=== PATIENT | female | born 2000 | race Caucasian/White ===

== ENCOUNTER 2020-02-12 11:37 | Emergency (ER) | payer OTHER ==
[2020-02-12 11:48] VITALS: BP 134/48; PULSE 139; RESP 18
[2020-02-12] MEDS ORDERED: LORazepam 2 MG/ML INJ IM STA (12:00)
--- NOTE | 2020-02-12 12:05 | ED ---
General Adult HPI - General Chief complaint: Psychiatric Symptoms Stated complaint: Mental Health Time Seen by Provider: 02/12/20 11:49 Source: patient, RN notes reviewed, old records reviewed Mode of arrival: ambulatory Limitations: no limitations - History of Present Illness Initial comments: 19-year-old female history of polysubstance abuse presenting with anxiety, suicidal ideation. Patient states that 3 days ago she stopped using heroin, methamphetamine, and benzodiazepines. Patient's is quite agitated upon arrival. She is stating she is having suicidal thoughts with plans to commit suicide but is unable to specify an exact plan. She denies any drugs of abuse within the past 72 hours. - Related Data Home Medications Medication Instructions Recorded Confirmed No Known Home Medications 02/12/20 02/12/20 Allergies Allergy/AdvReac Type Severity Reaction Status Date / Time No Known Allergies Allergy Verified 02/12/20 15:19 Review of Systems ROS Statement: Those systems with pertinent positive or pertinent negative responses have been documented in the HPI. ROS Other: All systems not noted in ROS Statement are negative. Past Medical History Past Medical History: No Reported History History of Any Multi-Drug Resistant Organisms: None Reported Past Surgical History: No Surgical Hx Reported Past Psychological History: Bipolar Smoking Status: Current every day smoker Past Alcohol Use History: None Reported Past Drug Use History: Heroin, Marijuana, Methamphetamine, Prescription Drug Abuse General Exam Limitations: no limitations General appearance: anxious Head exam: Present: atraumatic, normocephalic Eye exam: Present: normal appearance, PERRL ENT exam: Present: mucous membranes dry Neck exam: Present: normal inspection. Absent: tenderness, meningismus Respiratory exam: Present: normal lung sounds bilaterally. Absent: respiratory distress, wheezes Cardiovascular Exam: Present: regular rate, normal rhythm GI/Abdominal exam: Present: soft. Absent: distended, tenderness Extremities exam: Present: normal inspection, normal capillary refill. Absent: pedal edema Neurological exam: Present: alert, oriented X3 Psychiatric exam: Present: agitated, anxious, suicidal ideation Skin exam: Present: warm, dry, intact. Absent: cyanosis, diaphoretic Course Vital Signs 02/12/20 11:44 Temperature 97.9 F Pulse Rate 139 H Respiratory 18 Rate Blood Pressure 134/48 O2 Sat by Pulse 97 Oximetry Medical Decision Making - Medical Decision Making Patient medically cleared, evaluated by EPS and [facility]. She is no longer suicidal, she states this was just related to drug detox. She has signed a safety plan and will be discharged to drug rehabilitation. Again patient voicing no suicidal plan and willing to participate in rehabilitation. - Lab Data Lab Results 02/12/20 Range/Units Unknown Urine Opiates Screen Not Detected (NotDetected) Ur Oxycodone Screen Not Detected (NotDetected) Urine Methadone Screen Not Detected (NotDetected) Ur Propoxyphene Screen Not Detected (NotDetected) Ur Barbiturates Screen Not Detected (NotDetected) U Tricyclic Antidepress Not Detected (NotDetected) Ur Phencyclidine Scrn Not Detected (NotDetected) Ur Amphetamines Screen Detected H (NotDetected) U Methamphetamines Scrn Detected H (NotDetected) U Benzodiazepines Scrn Not Detected (NotDetected) Urine Cocaine Screen Not Detected (NotDetected) U Marijuana (THC) Screen Detected H (NotDetected) Disposition Clinical Impression: Depression, Polysubstance abuse Disposition: HOME SELF-CARE Condition: Fair Instructions (If sedation given, give patient instructions): Methamphetamine Abuse (ED), Polysubstance Abuse (ED), Depression (ED) Additional Instructions: Please follow up with community mental health, please return with worsening or changing symptoms. Is patient prescribed a controlled substance at d/c from ED?: No Referrals: None,Stated [Primary Care Provider] - 1-2 days Areli Burroughs MD [REFERRING] - 1-2 days Time of Disposition: 15:34
[2020-02-12 14:07] LABS: Cocaine Screen,Urine Not Detected (NotDetected); Phencyclidine Screen,Urine Not Detected (NotDetected); Urn Cannabinoid Scrn Detected (NotDetected)
[2020-02-12 14:08] LABS: Amphetamine Screen,Urine Detected (NotDetected); Barbiturate Screen,Urine Not Detected (NotDetected); Benzodiazepines Screen,Urine Not Detected (NotDetected); Methadone Screen, Urine Not Detected (NotDetected); Opiate Screen,Urine Not Detected (NotDetected); Oxycodone Screen, Urine Not Detected (NotDetected); Tricyclic Antidepressant,Urine Not Detected (NotDetected)
[2020-02-12] MEDS ORDERED: diphenhydrAMINE 25 MG CAP PO STA (15:08)
[2020-02-12 17:11] VITALS: TEMP 97.9
== END 2020-02-12 17:11 | disposition home or self-care (01) ==
LOC: EC 11:37
DX: F19.11 Other psychoactive substance abuse, in remission (principal); F32.9 Major depressive disorder, single episode, unspecified; F17.200 Nicotine dependence, unspecified, uncomplicated
CPT/HCPCS: 82075; 80306; 99285; J2060

== ENCOUNTER 2020-09-09 14:00 | Inpatient (IN) | payer OTHER ==
[2020-09-09] MEDS ORDERED: SODIUM CHLORIDE 0.9% 1,000 ML IV STA (14:25)
[2020-09-09 14:43] LABS: Anisocytosis Slight; Basophils % (A) 0 %; Eosinophils # (A) 0.1 k/uL (0-0.7); Eosinophils % (A) 1 %; HGB 13.1 gm/dL (11.4-16.0); Lymphocytes # (A) 2.5 k/uL (1.0-4.8); Lymphocytes % (A) 31 %; MCH 27.2 pg (25.0-35.0); MCHC 31.9 g/dL (31.0-37.0); MCV 85.3 fL (80.0-100.0); Mean Platelet Volume 7.4; Monocytes # (A) 0.4 k/uL (0-1.0); Monocytes % (A) 5 %; Neutrophils % (A) 61 %; Platelet Count 349 k/uL (150-450); WBC 8.3 k/uL (3.8-10.6)
[2020-09-09 14:55] LABS: ALT 51 U/L (4-34); AST 45 U/L (14-36); African American GFR (CKD) >90 (>60 ml/min/1.73 sqM); Albumin 3.9 g/dL (3.5-5.0); Alkaline Phosphatase 64 U/L (38-126); Anion Gap 10 mmol/L; Blood Urea Nitrogen 7 mg/dL (7-17); Calcium 9.6 mg/dL (8.4-10.2); Carbon Dioxide 23 mmol/L (22-30); Chloride 111 mmol/L (98-107); Glucose 95 mg/dL (74-99); Non-African American GFR(CKD) >90 (>60 ml/min/1.73 sqM); Potassium 4.4 mmol/L (3.5-5.1); Sodium 144 mmol/L (137-145); Total Bilirubin 0.3 mg/dL (0.2-1.3); Total Protein 7.2 g/dL (6.3-8.2)
[2020-09-09 15:01] LABS: Appearance,Urine Clear (Clear); Bilirubin,Urine Negative (Negative); Blood,Urine Negative (Negative); Color,Urine Yellow; Glucose,Urine (UA) Negative (Negative); Ketones,Urine Negative (Negative); Leukocyte Esterase,Urine Negative (Negative); Nitrite,Urine Negative (Negative); PH, Urine 8.5 (5.0-8.0); Protein,Urine Trace (Negative); Specific Gravity,Urine 1.017 (1.001-1.035); Urobilinogen,Urine <2.0 mg/dL (<2.0)
[2020-09-09 15:10] LABS: Amphetamine Screen,Urine Not Detected (NotDetected); Barbiturate Screen,Urine Not Detected (NotDetected); Benzodiazepines Screen,Urine Not Detected (NotDetected); Cocaine Screen,Urine Not Detected (NotDetected); Methadone Screen, Urine Not Detected (NotDetected); Opiate Screen,Urine Not Detected (NotDetected); Oxycodone Screen, Urine Not Detected (NotDetected); Phencyclidine Screen,Urine Not Detected (NotDetected); Tricyclic Antidepressant,Urine Not Detected (NotDetected); Urn Cannabinoid Scrn Detected (NotDetected)
--- NOTE | 2020-09-09 15:39 | ED ---
Seizure HPI - General Source: patient Mode of arrival: EMS Limitations: no limitations <Zina Garner - Last Filed: 09/09/20 20:33> <Tanya Donovan - Last Filed: 09/20/20 17:27> - General Chief Complaint: Seizure Stated Complaint: Seizure Time Seen by Provider: 09/09/20 14:15 - History of Present Illness Initial Comments: 20 year-old female patient presents to the emergency department for evaluation after having a seizure. Patient is currently at [facility] for heroin, methamphetamines, and benzos. Patient admits that she does generally drink alcohol on a daily basis. Has been at [facility] since 09/06/20. Staff at [facility] report generalized tonic clonic seizure lasting abotu 3 minutes. Patient denies loss of bowel or bladder control. Denies any tongue biting. States she has had one seizure in the past, over a year ago. Does not take any medications. Patient states that she has a mild headache. States she did strike her head when she fell. Has some tenderness to the right side of her head. Denies any neck or back pain. Has numbness, tingling, weakness to extremities. She does report fe eling anxious. She did receive 10 mg of Versed IM in the ambulance. Patient denies any recent rash, fever, chills, cough, shortness of breath, chest pain, abdominal pain, nausea, vomiting, diarrhea, constipation, hematuria, dysuria, urinary urgency, urinary frequency, or any other complaints. (Zina Garner) - Related Data Home Medications Medication Instructions Recorded Confirmed Acetaminophen Tab [Tylenol] 650 mg PO Q4H PRN 09/09/20 09/09/20 Calcium/Magnesium 1 tab PO DAILY 09/09/20 09/09/20 Chlorpheniramine Maleate 4 mg PO Q4H PRN 09/09/20 09/09/20 [Chlor-Trimeton] Ibuprofen [Motrin] 600 mg PO Q6H PRN 09/09/20 09/09/20 OXcarbazepine [Trileptal] 300 mg PO BID@0615,1630 09/09/20 09/09/20 QUEtiapine FUMARATE [SEROquel] 200 mg PO HS@2100 09/09/20 09/09/20 cloNIDine HCL [Catapres] 0.1 mg PO Q4H PRN 09/09/20 09/09/20 ondansetron HCL [Zofran] 8 mg PO Q6H PRN 09/09/20 09/09/20 Allergies Allergy/AdvReac Type Severity Reaction Status Date / Time No Known Allergies Allergy Verified 09/09/20 16:22 Review of Systems ROS Other: All systems not noted in ROS Statement are negative. <Zina Garner - Last Filed: 09/09/20 20:33> ROS Other: All systems not noted in ROS Statement are negative. <Tanya Donovan - Last Filed: 09/20/20 17:27> ROS Statement: Those systems with pertinent positive or pertinent negative responses have been documented in the HPI. 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 Vital signs upon presentation are temperature 98.8F, pulse 49, respirations 18, blood pressure 118/81, pulse ox 99% on room air.) Eye exam: Present: normal appearance, PERRL, EOMI. Absent: scleral icterus, conjunctival injection, nystagmus, periorbital swelling ENT exam: Present: normal exam, normal oropharynx, mucous membranes moist Neck exam: Present: normal inspection, full ROM, other (Nontender, no step-off, no deformity to firm midline palpation of the posterior cervical spine. Full range of motion without pain or limitation.). Absent: tenderness, meningismus, lymphadenopathy Respiratory exam: Present: normal lung sounds bilaterally. Absent: respiratory distress, wheezes, rales, rhonchi, stridor Cardiovascular Exam: Present: normal rhythm, bradycardia, normal heart sounds. Absent: systolic murmur, diastolic murmur, rubs, gallop, clicks GI/Abdominal exam: Present: soft, normal bowel sounds. Absent: distended, tenderness, guarding, rebound, rigid Neurological exam: Present: alert, oriented X3, CN II-XII intact Expanded Speech: Present: fluid speech Cranial nerves: EOM's Intact: Normal, Tongue Deviation: Normal Motor strength exam: RUE: 5, LUE: 5, RLE: 5, LLE: 5 Psychiatric exam: Present: normal affect, normal mood Skin exam: Present: warm, dry, intact, normal color. Absent: rash <Zina Garner - Last Filed: 09/09/20 20:33> Course Vital Signs 09/09/20 09/09/20 09/09/20 14:15 15:30 16:39 Temperature 98.8 F Pulse Rate 49 L 62 60 Pulse Rate [ Pulse Oximetery ] Respiratory 18 18 18 Rate Blood Pressure 118/81 119/67 116/69 Blood Pressure [Right Arm] O2 Sat by Pulse 99 98 99 Oximetry 09/09/20 09/09/20 09/09/20 18:09 18:25 20:57 Temperature 97.9 F Pulse Rate 45 L 55 L Pulse Rate [ 43 L Pulse Oximetery ] Respiratory 16 18 16 Rate Blood Pressure 122/83 122/73 Blood Pressure 141/85 [Right Arm] O2 Sat by Pulse 100 99 Oximetry Medical Decision Making - Lab Data Result diagrams: 09/09/20 14:29 09/09/20 14:29 - EKG Data -: EKG Interpreted by Fl - Radiology Data Radiology results: report reviewed, image reviewed <Zina Garner - Last Filed: 09/09/20 20:33> - Lab Data Result diagrams: 09/09/20 14:29 09/09/20 14:29 <Tanya Donovan - Last Filed: 09/20/20 17:27> - Medical Decision Making 20 year-female patient presented from [facility] rehab facility after having a seizure. Patient is being treated for heroin, methamphetamine, benzo, and marijuana addiction. Patient admitted to [facility] that she drinks alcohol on a daily basis. She has been at the facility for 3 days. Reports history of one seizure in the past. Physical examination was unremarkable. Labs unremarkable. She did have marked sinus bradycardia on EKG. She did have three additional seizures while in the ED. She will be admitted for alcohol vs benzo withdrawal seizures. CIWA protocol with ativan has been ordered. Telemetry monitoring. Patient is agreeable with this plan. Case discussed with my attending Dr. Donovan. (Zina Garner) I was available for consultation in the emergency department. The history and physical exam were done by the midlevel provider. I was consulted for this patients care. I reviewed the case with the midlevel provider and based on thei r presentation of the patient, I agree with the assessment, medical decision making and plan of care as documented. Chart was dictated using [employer] dictation software. Attempts were made to correct any dictation errors however some typographical errors may persist. Patient was seen during a national state of emergency due to the Covid-19 pandemic. (Tanya Donovan) - Lab Data Lab Results 09/09/20 09/09/20 09/09/20 Range/Units 14:29 14:29 14:29 WBC 8.3 (3.8-10.6) k/uL RBC 4.80 (3.80-5.40) m/uL Hgb 13.1 (11.4-16.0) gm/dL Hct 41.0 (34.0-46.0) % MCV 85.3 (80.0-100.0) fL MCH 27.2 (25.0-35.0) pg MCHC 31.9 (31.0-37.0) g/dL RDW 16.0 H (11.5-15.5) % Plt Count 349 (150-450) k/uL MPV 7.4 Neutrophils % 61 % Lymphocytes % 31 % Monocytes % 5 % Eosinophils % 1 % Basophils % 0 % Neutrophils # 5.0 (1.3-7.7) k/uL Lymphocytes # 2.5 (1.0-4.8) k/uL Monocytes # 0.4 (0-1.0) k/uL Eosinophils # 0.1 (0-0.7) k/uL Basophils # 0.0 (0-0.2) k/uL Anisocytosis Slight Sodium 144 (137-145) mmol/L Potassium 4.4 (3.5-5.1) mmol/L Chloride 111 H (98-107) mmol/L Carbon Dioxide 23 (22-30) mmol/L Anion Gap 10 mmol/L BUN 7 (7-17) mg/dL Creatinine 0.70 (0.52-1.04) mg/dL Est GFR (CKD-EPI)AfAm >90 (>60 ml/min/1.73 sqM) Est GFR (CKD-EPI)NonAf >90 (>60 ml/min/1.73 sqM) Glucose 95 (74-99) mg/dL Calcium 9.6 (8.4-10.2) mg/dL Total Bilirubin 0.3 (0.2-1.3) mg/dL AST 45 H (14-36) U/L ALT 51 H (4-34) U/L Alkaline Phosphatase 64 (38-126) U/L Total Protein 7.2 (6.3-8.2) g/dL Albumin 3.9 (3.5-5.0) g/dL Urine Color Yellow Urine Appearance Clear (Clear) Urine pH 8.5 H (5.0-8.0) Ur Specific [place] 1.017 (1.001-1.035) Urine Protein Trace H (Negative) Urine Glucose (UA) Negative (Negative) Urine Ketones Negative (Negative) Urine Blood Negative (Negative) Urine Nitrite Negative (Negative) Urine Bilirubin Negative (Negative) Urine Urobilinogen <2.0 (<2.0) mg/dL Ur Leukocyte Esterase Negative (Negative) Urine HCG, Qual (Not Detectd) Urine Opiates Screen Not Detected (NotDetected) Ur Oxycodone Screen Not Detected (NotDetected) Urine Methadone Screen Not Detected (NotDetected) Ur Propoxyphene Screen Not Detected (NotDetected) Ur Barbiturates Screen Not Detected (NotDetected) U Tricyclic Antidepress Not Detected (NotDetected) Ur Phencyclidine Scrn Not Detected (NotDetected) Ur Amphetamines Screen Not Detected (NotDetected) U Methamphetamines Scrn Not Detected (NotDetected) U Benzodiazepines Scrn Not Detected (NotDetected) Urine Cocaine Screen Not Detected (NotDetected) U Marijuana (THC) Screen Detected H (NotDetected) 09/09/20 Range/Units 14:29 WBC (3.8-10.6) k/uL RBC (3.80-5.40) m/uL Hgb (11.4-16.0) gm/dL Hct (34.0-46.0) % MCV (80.0-100.0) fL MCH (25.0-35.0) pg MCHC (31.0-37.0) g/dL RDW (11.5-15.5) % Plt Count (150-450) k/uL MPV Neutrophils % % Lymphocytes % % Monocytes % % Eosinophils % % Basophils % % Neutrophils # (1.3-7.7) k/uL Lymphocytes # (1.0-4.8) k/uL Monocytes # (0-1.0) k/uL Eosinophils # (0-0.7) k/uL Basophils # (0-0.2) k/uL Anisocytosis Sodium (137-145) mmol/L Potassium (3.5-5.1) mmol/L Chloride (98-107) mmol/L Carbon Dioxide (22-30) mmol/L Anion Gap mmol/L BUN (7-17) mg/dL Creatinine (0.52-1.04) mg/dL Est GFR (CKD-EPI)AfAm (>60 ml/min/1.73 sqM) Est GFR (CKD-EPI)NonAf (>60 ml/min/1.73 sqM) Glucose (74-99) mg/dL Calcium (8.4-10.2) mg/dL Total Bilirubin (0.2-1.3) mg/dL AST (14-36) U/L ALT (4-34) U/L Alkaline Phosphatase (38-126) U/L Total Protein (6.3-8.2) g/dL Albumin (3.5-5.0) g/dL Urine Color Urine Appearance (Clear) Urine pH (5.0-8.0) Ur Specific [place] (1.001-1.035) Urine Protein (Negative) Urine Glucose (UA) (Negative) Urine Ketones (Negative) Urine Blood (Negative) Urine Nitrite (Negative) Urine Bilirubin (Negative) Urine Urobilinogen (<2.0) mg/dL Ur Leukocyte Esterase (Negative) Urine HCG, Qual Not Detected (Not Detectd) Urine Opiates Screen (NotDetected) Ur Oxycodone Screen (NotDetected) Urine Methadone Screen (NotDetected) Ur Propoxyphene Screen (NotDetected) Ur Barbiturates Screen (NotDetected) U Tricyclic Antidepress (NotDetected) Ur Phencyclidine Scrn (NotDetected) Ur Amphetamines Screen (NotDetected) U Methamphetamines Scrn (NotDetected) U Benzodiazepines Scrn (NotDetected) Urine Cocaine Screen (NotDetected) U Marijuana (THC) Screen (NotDetected) - EKG Data EKG Comments: EKG obtained at 1432 shows markedly sinus bradycardia with a ventricular rate of 46, TN interval 118, QRS duration 82, QTc 504, QTC 441. No evidence of ST elevation or depression. (Zina Garner) - Radiology Data CT brain without contrast obtained. Report reviewed in its entirety. Impression by Dr. Harmon and shows no acute intracranial process. (Zina Garner) Disposition Decision to Admit Reason: Admit from EC Decision Date: 09/09/20 Decision Time: 17:32 <Zina Garner - Last Filed: 09/09/20 20:33> <Tanya Donovan - Last Filed: 09/20/20 17:27> Clinical Impression: Seizures, Alcohol withdrawal, Polysubstance abuse Disposition: ADMITTED IP TO THIS [facility] Condition: Serious
--- NOTE | 2020-09-09 16:07 | CT ---
EXAMINATION TYPE: CT brain wo con DATE OF EXAM: 09/09/2020 COMPARISON: None INDICATION: Seizure today with possible injury. History of seizure. DLP: 1064.4 mGycm, Automated exposure control for dose reduction was used. CONTRAST: None CT of the brain is performed utilizing 3 mm thick sections through the posterior fossa and 3 mm thick sections through the remaining calvarium. Study is performed within 24 hours of arrival to the hosp ital. No abnormal hyperdensity is present to suggest an acute intracranial hemorrhage. No mass lesion is evident. No acute infarcts are evident. Ventricles and sulci are appropriate for the patient age. Paranasal sinuses and mastoid air cells within the [id number] are clear. No acute fractures evident. IMPRESSIONS: 1. No acute intracranial process.
[2020-09-09] MEDS ORDERED: LORazepam 2 MG/ML INJ IV STA (17:23)
[2020-09-09] MEDS ORDERED: LORazepam 2 MG/ML INJ IV PRN ×2 (17:30)
[2020-09-09] MEDS ORDERED: MIDAZOLAM 1 MG/ML 5 ML VIAL IV STA (17:50)
[2020-09-09] MEDS ORDERED: NALOXONE 0.4 MG/ML 1 ML VIAL IV PRN (17:54)
[2020-09-09] MEDS: THIAMINE 100 MG TAB PO SCH (18:09)
[2020-09-09] MEDS: LORazepam 2 MG/ML INJ IV PRN ×2 (18:14→21:40)
[2020-09-09] MEDS ORDERED: QUEtiapine 200 MG TAB PO STA (20:43)
[2020-09-09 22:04] VITALS: TEMP 97.9
--- NOTE | 2020-09-09 23:46 | P.HPIM ---
History of Present Illness H&P Date: 09/09/20 Patient is a 20-year-old female with a PMH of polysubstance abuse including heroin, methamphetamine, EtOH, and prescription benzodiazepines along with a history of bipolar disorder and depression who was brought into the emergency room after a witnessed seizure. The patient reports that she had checked herself into [facility] on 09/06. The patient reportedly had a seizure at [facility] witnessed by the staff lasting about 3 minutes, tonic-clonic in nature with no reported urine or bowel incontinence. Patient denies tongue biting. She also reports falling to the ground and hitting her head during this episode. She endorsed a mild diffuse headache and feeling fatigued. She denied additional complaints. Denied this, numbness, tingling, visual disturbances. Also denied chest pain, shortness of breath, cough, nausea, vomiting, abdominal pain, diarrhea. The patient reports that she has previously had 2 additional seizures 2-3 months ago when she was incarcerated. Denies ever being on antiepileptics. Reports that her last drink was on 09/06 prior to going into [facility]. Notes that she drinks one to 2 pints of vodka daily along with a sixpack of beer and has been doing so for the past 1 year. Denied ever being hospitalized with delirium tremens. Also reports that she had last used multiple substances including benzodiazepines, IV methamphetamine, and IV heroin on 09/06. Brain CT in the emergency room was unremarkable with EKG showing sinus bradycardia at [address]/T-wave changes noted as reviewed by me. Laboratory evaluation was remarkable for AST 45, ALT 51, and urine toxicology positive for marijuana. Review of Systems Pertinent positives and negatives as discussed in HPI, a complete review of systems was performed and all other systems are negative. 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 History of Any Multi-Drug Resistant Organisms: None Reported Past Surgical History: No Surgical Hx Reported Past Psychological History: ADD/ADHD, Bipolar, Depression, PTSD Smoking Status: Current every day smoker Past Alcohol Use History: None Reported Past Drug Use History: Heroin, Marijuana, Methamphetamine, Opiates, Prescription Drug Abuse Medications and Allergies Home Medications Medication Instructions Recorded Confirmed Type Acetaminophen Tab [Tylenol] 650 mg PO Q4H PRN 09/09/20 09/09/20 History Calcium/Magnesium 1 tab PO DAILY 09/09/20 09/09/20 History Chlorpheniramine Maleate 4 mg PO Q4H PRN 09/09/20 09/09/20 History [Chlor-Trimeton] Ibuprofen [Motrin] 600 mg PO Q6H PRN 09/09/20 09/09/20 History OXcarbazepine [Trileptal] 300 mg PO BID@0615,1630 09/09/20 09/09/20 History QUEtiapine FUMARATE [SEROquel] 200 mg PO HS@2100 09/09/20 09/09/20 History cloNIDine HCL [Catapres] 0.1 mg PO Q4H PRN 09/09/20 09/09/20 History ondansetron HCL [Zofran] 8 mg PO Q6H PRN 09/09/20 09/09/20 History Allergies Allergy/AdvReac Type Severity Reaction Status Date / Time No Known Allergies Allergy Verified 09/09/20 16:22 Physical Exam Vitals: Vital Signs Temp Pulse Resp BP Pulse Ox 09/09/20 20:57 55 L 16 122/73 09/09/20 18:09 45 L 16 122/83 100 09/09/20 16:39 60 18 116/69 99 09/09/20 15:30 62 18 119/67 98 09/09/20 14:15 98.8 F 49 L 18 118/81 99 Intake and Output 09/09/20 09/09/20 09/09/20 06:59 14:59 22:59 Other: Weight 61.235 kg General: non toxic, no distress, appears older than stated age, normal weight Derm: no unusual rashes/lesions no unusual ecchymoses, warm, dry, track welch noted Head: atraumatic, normocephalic, symmetric Eyes: EOMI, no lid lag, anicteric sclera, pupils equal round reactive to light ENT: Nose and ears atraumatic, no thrush, no pharyngeal erythema, no tongue bites Neck: No thyromegaly, no cervical lymphadenopathy, trachea midline, supple Mouth: no lip lesion, mucus membranes moist Cardiovascular: S1S2 reg, no murmur, positive posterior tibial pulse bilateral, no edema, capillary refill less than 2 seconds Lungs: CTA bilateral, no rhonchi, no rales , no accessory muscle use Abdominal: soft, nontender to palpation, no guarding, no appreciable organomegaly, normal bowel sounds Ext: no gross muscle atrophy, muscle strength 5 out of 5 in all 4 extremities grossly, no contractures, Neuro: CN II-XI grossly intact, light touch intact all 4 extremities, finger to nose within normal limits, no outstretched hand tremor noted, no tongue fasciculations noted Psych: Alert, oriented, appropriate affect Results CBC & Chem 7: 09/09/20 14:29 09/09/20 14:29 Labs: Abnormal Lab Results - Last 24 Hours (Table) 09/09/20 09/09/20 09/09/20 Range/Units 14:29 14: 14: RDW 16.0 H (11.5-15.5) % Chloride 111 H (98-107) mmol/L AST 45 H (14-36) U/L ALT 51 H (4-34) U/L Urine pH 8.5 H (5.0-8.0) Urine Protein Trace H (Negative) U Marijuana (THC) Screen Detected H (NotDetected) Assessment and Plan Plan: Grand mal seizure, unclear etiology, primary versus EtOH or benzodiazepine withdrawal -Patient does not appear to be in EtOH withdrawal at this time -Seizure, fall precautions -CIWA protocol -Thiamine -Strongly advised on importance of cessation from polysubstance abuse -Continue with IV fluids Transaminitis -Likely secondary to EtOH abuse DVT prophylaxis -Heparin subq The patient is admitted with an anticipated greater than 2 midnight stay for marlene luation of seizure CODE STATUS: Full Code Discussed with: Patient Anticipated discharge date: 2-[address]: [facility] A total of 35 minutes was spent on the care of this complex patient more than 50% of the time was spent in counseling and care coordination.
[2020-09-10] MEDS: LORazepam 2 MG/ML INJ IV PRN ×3 (01:36→06:25)
[2020-09-10 04:08] VITALS: BP 128/78; PULSE 50; RESP 18
[2020-09-10] MEDS: THIAMINE 100 MG TAB PO SCH (06:25)
--- NOTE | 2020-09-10 08:51 | P.DS ---
Providers Date of admission: 09/09/20 17:51 Expected date of discharge: 09/10/20 Attending physician: Isela Castorena MD Consults: 09/09/20 23:44 Consult Physician Routine Consulting Provider: Estuardo Lovett Consult Reason/Comments: seizure Do you want consulting provider notified?: Yes Primary care physician: Physician Nonstaff Hospital Course: Patient left the hospital AMA this morning prior to my evaluation. Patient Condition at Discharge: Serious Plan - Discharge Summary Discharge Rx Participant: No New Discharge Prescriptions: No Action Ibuprofen [Motrin] 600 mg PO Q6H PRN PRN Reason: Pain ondansetron HCL [Zofran] 8 mg PO Q6H PRN PRN Reason: Nausea And Vomiting Acetaminophen Tab [Tylenol] 650 mg PO Q4H PRN PRN Reason: Fever And/ Or Pain cloNIDine HCL [Catapres] 0.1 mg PO Q4H PRN PRN Reason: Anxiety Chlorpheniramine Maleate [Chlor-Trimeton] 4 mg PO Q4H PRN PRN Reason: Allergy Symptoms QUEtiapine FUMARATE [SEROquel] 200 mg PO HS@2100 OXcarbazepine [Trileptal] 300 mg PO BID@0615,1630 Calcium/Magnesium 1 tab PO DAILY Discharge Medication List Acetaminophen Tab [Tylenol] 650 mg PO Q4H PRN 09/09/20 [History] Calcium/Magnesium 1 tab PO DAILY 09/09/20 [History] Chlorpheniramine Maleate [Chlor-Trimeton] 4 mg PO Q4H PRN 09/09/20 [History] Ibuprofen [Motrin] 600 mg PO Q6H PRN 09/09/20 [History] OXcarbazepine [Trileptal] 300 mg PO BID@0615,1630 09/09/20 [History] QUEtiapine FUMARATE [SEROquel] 200 mg PO HS@2100 09/09/20 [History] cloNIDine HCL [Catapres] 0.1 mg PO Q4H PRN 09/09/20 [History] ondansetron HCL [Zofran] 8 mg PO Q6H PRN 09/09/20 [History] Follow up Appointment(s)/Referral(s): Nonstaff,Physician [Primary Care Provider] - 1-2 days Discharge Disposition: Left Against Medical Advice
== END 2020-09-10 08:30 | disposition left against medical advice (07) | DRG 101 ==
LOC: EC 14:00 → 3SCARD 17:51
PROVIDERS: ADMIT Internal Medicine; ATTEND Internal Medicine
DX: G40.409 Other generalized epilepsy and epileptic syndromes, not intractable, without status epilepticus (principal); F10.139 Alcohol abuse with withdrawal, unspecified; F11.20 Opioid dependence, uncomplicated; F13.20 Sedative, hypnotic or anxiolytic dependence, uncomplicated; F15.20 Other stimulant dependence, uncomplicated; Z20.822 Contact with and (suspected) exposure to COVID-19; F19.10 Other psychoactive substance abuse, uncomplicated; F12.20 Cannabis dependence, uncomplicated; F17.210 Nicotine dependence, cigarettes, uncomplicated; F31.9 Bipolar disorder, unspecified; F43.10 Post-traumatic stress disorder, unspecified; F60.9 Personality disorder, unspecified; F90.9 Attention-deficit hyperactivity disorder, unspecified type; Z79.899 Other long term (current) drug therapy; Z91.81 History of falling
CPT/HCPCS: 36415; 70450; 80053; 80306; 81003; 81025; 85025; 87635; 93005; 96361; 96374; 96375; 99285

== ENCOUNTER 2022-10-16 10:44 | Emergency (ER) | payer OTHER ==
[2022-10-16 11:06] VITALS: TEMP 98
--- NOTE | 2022-10-16 11:45 | ED ---
Female Urogenital HPI - General Chief complaint: Vaginal Bleeding Stated complaint: vag bleeding/cramping preg Time Seen by Provider: 10/16/22 11:34 Source: patient, RN notes reviewed, old records reviewed Mode of arrival: ambulatory Limitations: no limitations - History of Present Illness Initial comments: 22-year-old well-appearing female presents to the emergency room with left lower quadrant abdominal pain and some vaginal spotting. States started yesterday. She found out she was on Tuesday went to urgent care on for confirmation. Her last menstrual period was September 05. This is her first . She denies any other medical history. Is taking a multivitamin daily. Does vape but denies any cigarette smoking or alcohol use. MD Complaint: vaginal bleeding, pelvic pain -: days(s) (1) Radiation: non-radiating Severity scale (1-10): 3 Quality: cramping Consistency: intermittent Patient : Yes - Related Data Sexually active: Yes Home Medications Medication Instructions Recorded Confirmed Acetaminophen Tab [Tylenol] 650 mg PO Q4H PRN 09/09/20 09/09/20 Calcium/Magnesium 1 tab PO DAILY 09/09/20 09/09/20 Chlorpheniramine Maleate 4 mg PO Q4H PRN 09/09/20 09/09/20 [Chlor-Trimeton] Ibuprofen [Motrin] 600 mg PO Q6H PRN 09/09/20 09/09/20 OXcarbazepine [Trileptal] 300 mg PO BID@0615,1630 09/09/20 09/09/20 QUEtiapine FUMARATE [SEROquel] 200 mg PO HS@2100 09/09/20 09/09/20 cloNIDine HCL [Catapres] 0.1 mg PO Q4H PRN 09/09/20 09/09/20 ondansetron HCL [Zofran] 8 mg PO Q6H PRN 09/09/20 09/09/20 Previous Rx's Medication Instructions Recorded Clq-Fugb-Nwhky Acid 1 each PO DAILY #30 cap 10/16/22 [-U Capsule] Allergies Allergy/AdvReac Type Severity Reaction Status Date / Time No Known Allergies Allergy Verified 10/16/22 11:03 Review of Systems ROS Statement: Those systems with pertinent positive or pertinent negative responses have been documented in the HPI. ROS Other: All systems not noted in ROS Statement are negative. 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 Absent: scleral icterus, conjunctival injection, periorbital swelling ENT exam: Present: mucous membranes moist Neck exam: Present: full ROM. Absent: tenderness, meningismus Respiratory exam: Absent: respiratory distress, accessory muscle use Cardiovascular Exam: Present: regular rate GI/Abdominal exam: Present: soft. Absent: distended, tenderness, guarding, rebound, rigid Extremities exam: Present: full ROM, normal capillary refill. Absent: tenderness, pedal edema Neurological exam: Present: alert, oriented X3 Psychiatric exam: Present: normal affect, normal mood Skin exam: Present: warm, dry, normal color. Absent: cyanosis, diaphoretic, petechiae, pallor Course Vital Signs 10/16/22 10/16/22 11:04 14:06 Temperature 98 F Pulse Rate 98 84 Respiratory 16 18 Rate Blood Pressure 123/74 128/88 O2 Sat by Pulse 97 97 Oximetry Medical Decision Making - Medical Decision Making Was pt. sent in by a medical professional or institution (, PA, HOSPITAL TRAY SERVICE WORKER, urgent care, hospital, or residential...) When possible be specific @ -No Did you speak to anyone other than the patient for history (EMS, parent, family, police, friend...)? What history was obtained from this source @ -No Did you review nursing and triage notes (agree or disagree)? Why? @ -I reviewed and agree with nursing and triage notes Were old charts reviewed (outside hosp., previous admission, EMS record, old EKG, old radiological studies, urgent care reports/EKG's, residential records)? Report findings @ -No old charts were reviewed Differential Diagnosis (chest pain, altered mental status, abdominal pain women, abdominal pain men, vaginal bleeding, weakness, fever, dyspnea, syncope, headache, dizziness, GI bleed, back pain, seizure, CVA, palpatations, mental health, musculoskeletal)? @ -Ectopic, subchorionic hemorrhage, threatened , menses, UTI EKG interpreted by me (3pts min.). @ -n/a X-rays interpreted by me (1pt min.). @ -None done CT interpreted by me (1pt min.). @ -None done U/S interpreted by me (1pt. min.). @ -Ultrasound interpreted by me shows intrauterine What testing was considered but not performed or refused? (CT, X-rays, U/S, labs)? Why? @ -None What meds were considered but not given or refused? Why? @ -RhoGAM considered however patient's blood type is A+ Did you discuss the management of the patient with other professionals (professionals i.e. , PA, HOSPITAL TRAY SERVICE WORKER, lab, RT, psych nurse, social media specialist, seafood service team member, teacher, youth officer, case assembler)? Give summary @ -No Was smoking cessation discussed for >3mins.? @ -yes Was critical care preformed (if so, how long)? @ -No Were there social determinants of health that impacted care today? How? (Homelessness, low income, unemployed, alcoholism, drug addiction, transportation, low edu. Level, literacy, decrease access to med. care, snf, r ehab)? @ -No Was there de-escalation of care discussed even if they declined (Discuss DNR or withdrawal of care, Hospice)? DNR status @ -No What co-morbidities impacted this encounter? (DM, HTN, Smoking, COPD, CAD, Cancer, CVA, ARF, Chemo, Hep., AIDS, mental health diagnosis, sleep apnea, morbid obesity)? @ -Patient has a history of ADHD, bipolar, depression, PTSD, does vape. Was patient admitted / discharged? Hospital course, mention meds given and route, prescriptions, significant lab abnormalities, going to OR and other pertinent info. @ -Discharged 22-year-old well-appearing female presents to the emergency room with left lower quadrant abdominal pain and some vaginal spotting. States started yesterday. She found out she was on Tuesday went to urgent care on for confirmation. Her last menstrual period was September 05. This is her first . She denies any other medical history. Is taking a multivitamin daily. Does vape but denies any cigarette smoking or alcohol use. Ultrasound study shows a single live intrauterine gestation at 6 weeks 4 days. Small subchorionic hemorrhage. heart rate 109. Hemoglobin and hematocrit are stable. Electrolytes are unremarkable. Urinalysis is negative for infection, positive for . Beta Quant 04868.6 Blood type a+ Patient offered a pelvic exam to assess for vaginal bleeding and declined stating that she is no longer bleeding does went to the bathroom. Denies any pain at this time. Abdomen is soft and nontender. Patient is hemodynamically stable. She will be discharged home to vitamins as prescribed. Patient was encouraged to stop vaping. Follow-up with CHIEF II DISPATCHER and return with any new or concerning symptoms. She is agreeable to this plan of care. Case discussed with Dr. Solomon Undiagnosed new problem with uncertain prognosis? @ -No Drug Therapy requiring intensive monitoring for toxicity (Heparin, Nitro, Insulin, Cardizem)? @ -No Were any procedures done? @ -No Diagnosis/symptom? @ -Intrauterine Acute, or Chronic, or Acute on Chronic? @ -Acute Uncomplicated (without systemic symptoms) or Complicated (systemic symptoms)? @ -Uncomplicated Side effects of treatment? @ -No Exacerbation, Progression, or Severe Exacerbation? @ -No Poses a threat to life or bodily function? How? (Chest pain, [place], [place], pneumonia, PE, COPD, DKA, ARF, appy, cholecystitis, CVA, Diverticulitis, Homicidal, Suicidal, threat to staff... and all critical care pts) @ -No - Lab Data Result diagrams: 10/16/22 11:44 10/16/22 11:44 Lab Results 10/16/22 10/16/22 10/16/22 Range/Units 11:44 11:44 11:44 WBC 8.3 (3.8-10.6) k/uL RBC 4.46 (3.80-5.40) m/uL Hgb 13.0 (11.4-16.0) gm/dL Hct 38.6 (34.0-46.0) % MCV 86.4 (80.0-100.0) fL MCH 29.2 (25.0-35.0) pg MCHC 33.8 (31.0-37.0) g/dL RDW 13.3 (11.5-15.5) % Plt Count 261 (150-450) k/uL MPV 8.0 Neutrophils % 56 % Lymphocytes % 36 % Monocytes % 5 % Eosinophils % 1 % Basophils % 0 % Neutrophils # 4.6 (1.3-7.7) k/uL Lymphocytes # 3.0 (1.0-4.8) k/uL Monocytes # 0.5 (0-1.0) k/uL Eosinophils # 0.1 (0-0.7) k/uL Basophils # 0.0 (0-0.2) k/uL Sodium 135 L (137-145) mmol/L Potassium 3.9 (3.5-5.1) mmol/L Chloride 107 (98-107) mmol/L Carbon Dioxide 19 L (22-30) mmol/L Anion Gap 9 mmol/L BUN 8 (7-17) mg/dL Creatinine 0.55 (0.52-1.04) mg/dL Est GFR (CKD-EPI)AfAm >90 (>60 ml/min/1.73 sqM) Est GFR (CKD-EPI)NonAf >90 (>60 ml/min/1.73 sqM) Glucose 86 (74-99) mg/dL Calcium 8.9 (8.4-10.2) mg/dL Total Bilirubin 0.3 (0.2-1.3) mg/dL AST 37 H (14-36) U/L ALT 43 H (4-34) U/L Alkaline Phosphatase 46 (38-126) U/L Total Protein 6.8 (6.3-8.2) g/dL Albumin 3.8 (3.5-5.0) g/dL HCG, Quant 52373.6 mIU/mL Urine Color Urine Appearance (Clear) Urine pH (5.0-8.0) Ur Specific [place] (1.001-1.035) Urine Protein (Negative) Urine Glucose (UA) (Negative) Urine Ketones (Negative) Urine Blood (Negative) Urine Nitrite (Negative) Urine Bilirubin (Negative) Urine Urobilinogen (<2.0) mg/dL Ur Leukocyte Esterase (Negative) Urine HCG, Qual Detected (Not Detectd) Blood Type Blood Type Recheck Bld Type Recheck Status 10/16/22 10/16/22 Range/Units 11:44 11:44 WBC (3.8-10.6) k/uL RBC (3.80-5.40) m/uL Hgb (11.4-16.0) gm/dL Hct (34.0-46.0) % MCV (80.0-100.0) fL MCH (25.0-35.0) pg MCHC (31.0-37.0) g/dL RDW (11.5-15.5) % Plt Count (150-450) k/uL MPV Neutrophils % % Lymphocytes % % Monocytes % % Eosinophils % % Basophils % % Neutrophils # (1.3-7.7) k/uL Lymphocytes # (1.0-4.8) k/uL Monocytes # (0-1.0) k/uL Eosinophils # (0-0.7) k/uL Basophils # (0-0.2) k/uL Sodium (137-145) mmol/L Potassium (3.5-5.1) mmol/L Chloride (98-107) mmol/L Carbon Dioxide (22-30) mmol/L Anion Gap mmol/L BUN (7-17) mg/dL Creatinine (0.52-1.04) mg/dL Est GFR (CKD-EPI)AfAm (>60 ml/min/1.73 sqM) Est GFR (CKD-EPI)NonAf (>60 ml/min/1.73 sqM) Glucose (74-99) mg/dL Calcium (8.4-10.2) mg/dL Total Bilirubin (0.2-1.3) mg/dL AST (14-36) U/L ALT (4-34) U/L Alkaline Phosphatase (38-126) U/L Total Protein (6.3-8.2) g/dL Albumin (3.5-5.0) g/dL HCG, Quant mIU/mL Urine Color Yellow Urine Appearance Clear (Clear) Urine pH 6.0 (5.0-8.0) Ur Specific [place] 1.024 (1.001-1.035) Urine Protein Negative (Negative) Urine Glucose (UA) Negative (Negative) Urine Ketones Negative (Negative) Urine Blood Negative (Negative) Urine Nitrite Negative (Negative) Urine Bilirubin Negative (Negative) Urine Urobilinogen <2.0 (<2.0) mg/dL Ur Leukocyte Esterase Negative (Negative) Urine HCG, Qual (Not Detectd) Blood Type A Positive Blood Type Recheck No Previous Record Bld Type Recheck Status [facility] ONLY Disposition Clinical Impression: Intrauterine , Subchorionic hemorrhage in first trimester Disposition: HOME SELF-CARE Condition: Good Instructions (If sedation given, give patient instructions): (ED), Subchorionic Hemorrhage (ED) Additional Instructions: Increase your fluid intake. Take vitamins as prescribed or multivitamin with folic acid. Follow-up with your CHIEF II DISPATCHER next week. Return to the emergency room with any new or concerning symptoms. Prescriptions: Kqu-Dgti-Fckmz Acid [-U Capsule] 1 each PO DAILY #30 cap Is patient prescribed a controlled substance at d/c from ED?: No Referrals: Nonstaff,Physician [REFERRING] - 1-2 days Paz Epperson DO [Doctor of Osteopathic Medicine] - 1-2 days Time of Disposition: 13:41
[2022-10-16 12:05] LABS: Basophils % (A) 0 %; Eosinophils # (A) 0.1 k/uL (0-0.7); Eosinophils % (A) 1 %; HCT 38.6 % (34.0-46.0); Lymphocytes % (A) 36 %; MCH 29.2 pg (25.0-35.0); MCHC 33.8 g/dL (31.0-37.0); MCV 86.4 fL (80.0-100.0); Monocytes # (A) 0.5 k/uL (0-1.0); Monocytes % (A) 5 %; Neutrophils # (A) 4.6 k/uL (1.3-7.7); Neutrophils % (A) 56 %; Platelet Count 261 k/uL (150-450); RBC 4.46 m/uL (3.80-5.40); RDW 13.3 % (11.5-15.5); WBC 8.3 k/uL (3.8-10.6)
[2022-10-16 12:06] LABS: Appearance,Urine Clear (Clear); Bilirubin,Urine Negative (Negative); Blood,Urine Negative (Negative); Color,Urine Yellow; Glucose,Urine (UA) Negative (Negative); Ketones,Urine Negative (Negative); Leukocyte Esterase,Urine Negative (Negative); Nitrite,Urine Negative (Negative); Protein,Urine Negative (Negative); Specific Gravity,Urine 1.024 (1.001-1.035); Urobilinogen,Urine <2.0 mg/dL (<2.0)
[2022-10-16 12:19] LABS: ALT 43 U/L (4-34); AST 37 U/L (14-36); African American GFR (CKD) >90 (>60 ml/min/1.73 sqM); Albumin 3.8 g/dL (3.5-5.0); Alkaline Phosphatase 46 U/L (38-126); Anion Gap 9 mmol/L; Blood Urea Nitrogen 8 mg/dL (7-17); Calcium 8.9 mg/dL (8.4-10.2); Carbon Dioxide 19 mmol/L (22-30); Chloride 107 mmol/L (98-107); Glucose 86 mg/dL (74-99); Non-African American GFR(CKD) >90 (>60 ml/min/1.73 sqM); Potassium 3.9 mmol/L (3.5-5.1); Sodium 135 mmol/L (137-145); Total Bilirubin 0.3 mg/dL (0.2-1.3); Total Protein 6.8 g/dL (6.3-8.2)
--- NOTE | 2022-10-16 12:39 | US ---
EXAMINATION TYPE: Transabdominal DATE OF EXAM: 10/16/2022 12:30 PM COMPARISON: NONE CLINICAL INDICATION: Female, 22 years old with history of llq pain vag spotting; left lower pain and light bleeding today, G1 EXAM PERFORMED: OBTA/OBTV EXAM MEASUREMENTS: GESTATIONAL AGE / DATING Physician Established: Not yet established Dates by LMP: (5 weeks/6 days) EDC: 06/12/2023 Dates by First Scan: No previous this is first scan Dates by Current Scan for: (6 weeks/4 days) EDC: 06/07/2023 MATERNAL ANATOMY Uterus: 8.2 x 5.8 x 4.8cm Right Ovary: 3.4 x 2.4 x 2.5cm Left Ovary: 2.8 x 2.4 x 1.4cm Post CDS / Adnexa: wnl Presence of free fluid: no Presence of corpus luteal cyst: yes, right ovary = 1.8 x 1.9 x 1.4cm Presence of subchorionic bleed: small bleeding near cervix = 0.7 x 0.5 x 0.5cm GESTATION / SURVEY CRL: 0.6cm (6 weeks/4 days) MSD: wnl Yolk Sac (normal less than 6mm): 0.1cm Heart Rate: 109 bpm Rhythm: Normal IUP: Viable IUP Date of LMP: 09/05/2022 Beta HcG (if available): not available IMPRESSION: 1. Single live intrauterine gestation with ultrasound age 6 weeks 4 days. 2. Small subchorionic hemorrhage.
[2022-10-16 13:34] LABS: HCG,Quantitative Serum 82384.6 mIU/mL
[2022-10-16 14:07] VITALS: BP 128/88; PULSE 84; RESP 18
== END 2022-10-16 14:06 | disposition home or self-care (01) ==
LOC: EC 10:44
DX: O00.01 Abdominal pregnancy with intrauterine pregnancy (principal); O99.341 Other mental disorders complicating pregnancy, first trimester; F90.9 Attention-deficit hyperactivity disorder, unspecified type; F31.9 Bipolar disorder, unspecified; O99.331 Smoking (tobacco) complicating pregnancy, first trimester; F17.200 Nicotine dependence, unspecified, uncomplicated; O99.321 Drug use complicating pregnancy, first trimester; F12.90 Cannabis use, unspecified, uncomplicated; F15.10 Other stimulant abuse, uncomplicated; F11.90 Opioid use, unspecified, uncomplicated; Z79.899 Other long term (current) drug therapy; Z3A.01 Less than 8 weeks gestation of pregnancy
CPT/HCPCS: 36415; 76801; 76817; 80053; 81003; 81025; 84702; 85025; 86900; 86901; 99284

== ENCOUNTER → 2022-12-08 | Outpatient (CLI) | payer OTHER ==
--- NOTE | 2022-12-08 13:01 | US ---
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 Patient is 15 weeks . TECHNIQUE: Multiple sonographic images of the right upper quadrant are obtained. FINDINGS: EXAM MEASUREMENTS: Liver Length: 15.8 cm Gallbladder Wall: 0.25 cm CBD: 0.39 cm Right Kidney: 11.6 x 6.[address] APPRAISER NOTES: Limited due to overlying bowel gas. Pancreas: Tail was not well seen. Liver: Appears coarse. Hyperechoic area seen within the right lobe: 1.6 x 1.7 x 1.5 cm. Probable hem angioma. Gallbladder: Appears wnl Evidence for sonographic Siegel's sign: No CBD: Appears wnl Right Kidney: No hydronephrosis or masses seen IMPRESSION: 1. A probable 1.7 cm right hepatic lobe hemangioma. Consider precautionary follow-up to demonstrate s tability in 6-12 months. 2. No gallstones or biliary ductal dilatation.
== END | disposition home or self-care (01) ==
LOC: RADUSWWP 07:45
PROVIDERS: ATTEND Internal Medicine Gastroenterology
DX: O98.412 Viral hepatitis complicating pregnancy, second trimester (principal); Z3A.15 15 weeks gestation of pregnancy; B18.2 Chronic viral hepatitis C
CPT/HCPCS: 76705

== ENCOUNTER 2022-12-17 07:35 | Emergency (ER) | payer OTHER ==
[2022-12-17 07:41] VITALS: RESP 18
--- NOTE | 2022-12-17 08:05 | ED ---
General Adult HPI - General Chief complaint: Abdominal Pain Stated complaint: Abd Pain,Yeast Infection,16 weeks Time Seen by Provider: 12/17/22 07:40 Source: patient, RN notes reviewed, old records reviewed Mode of arrival: ambulatory Limitations: no limitations - History of Present Illness Initial comments: This is a 22-year-old female presents emergency Department 16 weeks . Patient states last twice with some pulling sensation both sides of her abdomen. Patient states it lasted until she got up and walk around and went away com pletely. Patient denies any nausea vomiting diarrhea. Patient states she's had a yeast infection lately but does not appear to be going away. Patient states she also has a little bit of dysuria. Patient denies any back pain. Patient's any fever chills per patient denies any nausea vomiting diarrhea. - Related Data Home Medications Medication Instructions Recorded Confirmed Acetaminophen Tab [Tylenol] 650 mg PO Q4H PRN 09/09/20 09/09/20 Calcium/Magnesium 1 tab PO DAILY 09/09/20 09/09/20 Chlorpheniramine Maleate 4 mg PO Q4H PRN 09/09/20 09/09/20 [Chlor-Trimeton] Ibuprofen [Motrin] 600 mg PO Q6H PRN 09/09/20 09/09/20 OXcarbazepine [Trileptal] 300 mg PO BID@0615,1630 09/09/20 09/09/20 QUEtiapine FUMARATE [SEROquel] 200 mg PO HS@2100 09/09/20 09/09/20 cloNIDine HCL [Catapres] 0.1 mg PO Q4H PRN 09/09/20 09/09/20 ondansetron HCL [Zofran] 8 mg PO Q6H PRN 09/09/20 09/09/20 Previous Rx's Medication Instructions Recorded Fdx-Zdos-Lnfgk Acid 1 each PO DAILY #30 cap 10/16/22 [-U Capsule] Miconazole 2% Vaginal Cream 1 applicator VAGINAL HS #45 gm 12/17/22 [Monistat 7] Allergies Allergy/AdvReac Type Severity Reaction Status Date / Time No Known Allergies Allergy Verified 12/17/22 07:42 Review of Systems ROS Statement: Those systems with pertinent positive or pertinent negative responses have been documented in the HPI. ROS Other: All systems not noted in ROS Statement are negative. 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 Patient is nontoxic and well- hydrated and is in no acute distress. ENT: Neck is soft and supple. No significant lymphadenopathy is noted. Oropharynx is clear. Moist mucous membranes. Neck has full range of motion without eliciting any pain. EYES: The sclera were anicteric and conjunctiva were pink and moist. Extraocular movements were intact and pupils were equal round and reactive to light. Eyelids were unremarkable. ABDOMEN: Soft and nontender with normal bowel sounds. No palpable organomegaly was noted. There is no palpable pulsatile mass. SKIN: Skin is clear with no lesions or rashes and otherwise unremarkable. NEUROLOGIC: Patient is alert and oriented x3. Cranial nerves II through XII are grossly intact. Motor and sensory are also intact. Normal speech, volume and content. Symmetrical smile. MUSCULOSKELETAL: Normal extremities with adequate strength and full range of motion. No lower extremity swelling or edema. No calf tenderness. LYMPHATICS: No significant lymphadenopathy is noted PSYCHIATRIC: Normal psychiatric evaluation. Limitations: no limitations Course Vital Signs 12/17/22 12/17/22 07:38 09:47 Temperature 98.7 F 97.6 F Pulse Rate 86 78 Respiratory 18 18 Rate Blood Pressure 106/64 109/72 O2 Sat by Pulse 97 97 Oximetry Medical Decision Making - Medical Decision Making Was pt. sent in by a medical professional or institution (, PA, CATTLE AND WHEAT FARMER, urgent care, hospital, or long-term...) When possible be specific @ -No Did you speak to anyone other than the patient for history (EMS, parent, family, police, friend...)? What history was obtained from this source @ -No Did you review nursing and triage notes (agree or disagree)? Why? @ -I reviewed and agree with nursing and triage notes Were old charts reviewed (outside hosp., previous admission, EMS record, old EKG, old radiological studies, urgent care reports/EKG's, long-term records)? Report findings @ -No old charts were reviewed Differential Diagnosis (chest pain, altered mental status, abdominal pain women, abdominal pain men, vaginal bleeding, weakness, fever, dyspnea, syncope, headache, dizziness, GI bleed, back pain, seizure, CVA, palpatations, mental health, musculoskeletal)? @ -Differential Abdominal Pain Women: Appendicitis, Cholecystitis, diverticulosis, ischemic bowel, pancreatitis, hepatitis, UTI, gastroenteritis, AAA, incarcerated hernia, bowel obstruction, constipation, inflammatory bowel, hepatitis, peptic ulcer disease, splenic infarction, perforated viscus, vulvitis, ovarian torsion, PID, kidney stone, placenta abruption, this is not meant to be an all-inclusive list EKG interpreted by me (3pts min.). @ -As above X-rays interpreted by me (1pt min.). @ -None done CT interpreted by me (1pt min.). @ -None done U/S interpreted by me (1pt. min.). @ -None done What testing was considered but not performed or refused? (CT, X-rays, U/S, labs)? Why? @ -None What meds were considered but not given or refused? Why? @ -None Did you discuss the management of the patient with other professionals (professionals i.e. , PA, CATTLE AND WHEAT FARMER, lab, RT, psych nurse, school social worker, quarter backer, teacher, bank secrecy act officer, case liner)? Give summary @ -No Was smoking cessation discussed for >3mins.? @ -No Was critical care preformed (if so, how long)? @ -No Were there social determinants of health that impacted care today? How? (Homelessness, low income, unemployed, alcoholism, drug addiction, transportation, low edu. Level, literacy, decrease access to med. care, group home, rehab)? @ -No Was there de-escalation of care discussed even if they declined (Discuss DNR or withdrawal of care, Hospice)? DNR status @ -No What co-morbidities impacted this encounter? (DM, HTN, Smoking, COPD, CAD, Cancer, CVA, ARF, Chemo, Hep., AIDS, mental health diagnosis, sleep apnea, morbid obesity)? @ -None Was patient admitted / discharged? Hospital course, mention meds given and route, prescriptions, significant lab abnormalities, going to OR and other pertinent info. @ -Urine came back and showed no obvious infection but a urine culture was sent. Patient will be treated for all full vaginal yeast infection Undiagnosed new problem with uncertain prognosis? @ -No Drug Therapy requiring intensive monitoring for toxicity (Heparin, Nitro, Insulin, Cardizem)? @ -No Were any procedures done? @ -No Diagnosis/symptom? @ -Round ligament pain Acute, or Chronic, or Acute on Chronic? @ -Acute Uncomplicated (without systemic symptoms) or Complicated (systemic symptoms)? @ -Complicated Side effects of treatment? @ -No Exacerbation, Progression, or Severe Exacerbation? @ -No Poses a threat to life or bodily function? How? (Chest pain, [place], [place], pneumonia, PE, COPD, DKA, ARF, appy, cholecystitis, CVA, Diverticulitis, Homicidal, Suicidal, threat to staff... and all critical care pts) @ -No Diagnosis/symptom? @ -Vulvovaginitis Acute, or Chronic, or Acute on Chronic? @ -Acute Uncomplicated (without systemic symptoms) or Complicated (systemic symptoms)? @ -Complicated Side effects of treatment? @ -none Exacerbation, Progression, or Severe Exacerbation] @ -no Poses a threat to life or bodily function? @ -no - Lab Data Lab Results 12/17/22 Range/Units 08:14 Urine Color Yellow Urine Appearance Turbid H (Clear) Urine pH 7.0 (5.0-8.0) Ur Specific [place] 1.016 (1.001-1.035) Urine Protein Negative (Negative) Urine Glucose (UA) Negative (Negative) Urine Ketones Negative (Negative) Urine Blood Negative (Negative) Urine Nitrite Negative (Negative) Urine Bilirubin Negative (Negative) Urine Urobilinogen <2.0 (<2.0) mg/dL Ur Leukocyte Esterase Negative (Negative) Urine RBC 8 H (0-5) /hpf Urine WBC <1 (0-5) /hpf Ur Squamous Epith Cells 5 H (0-4) /hpf Amorphous Sediment Moderate H (None) /hpf Urine Bacteria Occasional H (None) /hpf Urine Mucus Rare H (None) /hpf Disposition Clinical Impression: Vulvovaginitis due to yeast Disposition: HOME SELF-CARE Condition: Good Prescriptions: Miconazole 2% Vaginal Cream [Monistat 7] 1 applicator VAGINAL HS #45 gm Is patient prescribed a controlled substance at d/c from ED?: No Referrals: Stephen Schneider DPM [Primary Care Provider] - 1-2 days Time of Disposition: 09:08
[2022-12-17 09:00] LABS: Color,Urine Yellow
[2022-12-17 09:01] LABS: Amorphous Sediment,Urine Moderate /hpf; Appearance,Urine Turbid (Clear); Bacteria,Urine Occasional /hpf; Bilirubin,Urine Negative (Negative); Blood,Urine Negative (Negative); Glucose,Urine (UA) Negative (Negative); Ketones,Urine Negative (Negative); Leukocyte Esterase,Urine Negative (Negative); Mucus,Urine Rare /hpf; Nitrite,Urine Negative (Negative); Protein,Urine Negative (Negative); RBC,Urine 8 /hpf (0-5); Specific Gravity,Urine 1.016 (1.001-1.035); Squamous Epithelial Cell,Urine 5 /hpf (0-4); Urobilinogen,Urine <2.0 mg/dL (<2.0); WBC,Urine <1 /hpf (0-5)
[2022-12-17 09:49] VITALS: BP 109/72; PULSE 78; TEMP 97.6
== END 2022-12-17 09:49 | disposition home or self-care (01) ==
LOC: EC 07:35
DX: O23.592 Infection of other part of genital tract in pregnancy, second trimester (principal); B37.31 Acute candidiasis of vulva and vagina; O99.342 Other mental disorders complicating pregnancy, second trimester; F31.9 Bipolar disorder, unspecified; O99.332 Smoking (tobacco) complicating pregnancy, second trimester; F17.200 Nicotine dependence, unspecified, uncomplicated; O99.322 Drug use complicating pregnancy, second trimester; F12.90 Cannabis use, unspecified, uncomplicated; F11.90 Opioid use, unspecified, uncomplicated; F14.90 Cocaine use, unspecified, uncomplicated; F15.90 Other stimulant use, unspecified, uncomplicated; Z3A.16 16 weeks gestation of pregnancy; Z79.899 Other long term (current) drug therapy
CPT/HCPCS: 81001; 87086; 99284

== ENCOUNTER 2022-12-26 16:38 | Emergency (ER) | payer OTHER ==
[2022-12-26 17:04] VITALS: TEMP 98.2
[2022-12-26] MEDS ORDERED: SODIUM CHLORIDE 0.9% 1,000 ML IV ONE (17:18)
[2022-12-26] MEDS ORDERED: ACETAMINOPHEN TAB 500 MG TAB PO STA (17:18)
--- NOTE | 2022-12-26 17:21 | ED ---
Female Urogenital HPI - General Chief complaint: Vaginal Bleeding Stated complaint: 17WK PG, LEAKING FLUID Source: patient Mode of arrival: ambulatory Limitations: no limitations - History of Present Illness Initial comments: A0 22-year-old female presents to the ED with a chief complaint of abdominal pain. Patient is currently 17 weeks and 4 days and had an ultrasound at 15 weeks confirming IUP. States today, is having intermittent lower abdominal pain. States that she is also having pink tinged mucus discharge, unsure if there is any vaginal bleeding. Denies urinary complaints. No other complaints. Last Menstrual Period: 09/05/22 - Related Data Home Medications Medication Instructions Recorded Confirmed Acetaminophen Tab [Tylenol] 650 mg PO Q4H PRN 09/09/20 09/09/20 Calcium/Magnesium 1 tab PO DAILY 09/09/20 09/09/20 Chlorpheniramine Maleate 4 mg PO Q4H PRN 09/09/20 09/09/20 [Chlor-Trimeton] Ibuprofen [Motrin] 600 mg PO Q6H PRN 09/09/20 09/09/20 OXcarbazepine [Trileptal] 300 mg PO BID@0615,1630 09/09/20 09/09/20 QUEtiapine FUMARATE [SEROquel] 200 mg PO HS@2100 09/09/20 09/09/20 cloNIDine HCL [Catapres] 0.1 mg PO Q4H PRN 09/09/20 09/09/20 ondansetron HCL [Zofran] 8 mg PO Q6H PRN 09/09/20 09/09/20 Previous Rx's Medication Instructions Recorded Nxl-Mxey-Hhagz Acid 1 each PO DAILY #30 cap 10/16/22 [-U Capsule] Miconazole 2% Vaginal Cream 1 applicator VAGINAL HS #45 gm 12/17/22 [Monistat 7] Allergies Allergy/AdvReac Type Severity Reaction Status Date / Time No Known Allergies Allergy Verified 12/26/22 17:01 Review of Systems ROS Statement: Those systems with pertinent positive or pertinent negative responses have been documented in the HPI. ROS Other: All systems not noted in ROS Statement are negative. 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 History of Any Multi-Drug Resistant Organisms: None Reported Past Surgical History: No Surgical Hx Reported Past Anesthesia/Blood Transfusion Reactions: No Reported Reaction Past Psychological History: ADD/ADHD, Bipolar, Depression, PTSD Smoking Status: Current every day smoker Past Alcohol Use History: None Reported Past Drug Use History: None Reported, Cocaine, Heroin, Marijuana, Methamphetamine, Opiates, Prescription Drug Abuse General Exam Limitations: no limitations General appearance: alert, in no apparent distress Neck exam: Present: normal inspection Respiratory exam: Present: normal lung sounds bilaterally Cardiovascular Exam: Present: regular rate, normal rhythm GI/Abdominal exam: Present: soft (Gravid. No significant tenderness to palpation. No rebound guarding or rigidity.), normal bowel sounds Neurological exam: Present: alert, oriented X3 Skin exam: Present: warm, dry Course Vital Signs 12/26/22 17:01 Temperature 98.2 F Pulse Rate 91 Respiratory 16 Rate Blood Pressure 112/74 O2 Sat by Pulse 98 Oximetry Medical Decision Making - Medical Decision Making Was pt. sent in by a medical professional or institution (, PA, L[facility], urgent care, hospital, or prison...) When possible be specific @ -No Did you speak to anyone other than the patient for history (EMS, parent, family, police, friend...)? What history was obtained from this source @ -No Did you review nursing and triage notes (agree or disagree)? Why? @ -I reviewed and agree with nursing and triage notes Were old charts reviewed (outside hosp., previous admission, EMS record, old EKG, old radiological studies, urgent care reports/EKG's, prison records)? Report findings @ -No old charts were reviewed Differential Diagnosis (chest pain, altered mental status, abdominal pain women, abdominal pain men, vaginal bleeding, weakness, fever, dyspnea, syncope, headache, dizziness, GI bleed, back pain, seizure, CVA, palpatations, mental health, musculoskeletal)? @ -Differential Vaginal Bleeding: Spontaneous , threatened , molar , ectopic , bloody show, incompetent cervix, abruptioplacenta, placenta previa, uterine rupture, dysfunctional uterine bleeding, hemorrhage, uterine fibroids, this is not meant to be an all-inclusive list. EKG interpreted by me (3pts min.). @ -None X-rays interpreted by me (1pt min.). @ -None done CT interpreted by me (1pt min.). @ -None done U/S interpreted by me (1pt. min.). @ -Transvaginal ultrasound showed single live IUP estimated age 17 weeks 3 day s. Additionally showed complex lesion adjacent to the placenta possibly representing placental chorioangioma measuring@ 7.1 x 3.5 cm What testing was considered but not performed or refused? (CT, X-rays, U/S, labs)? Why? @ -None What meds were considered but not given or refused? Why? @ -None Did you discuss the management of the patient with other professionals (professionals i.e. , PA, LAYER [facility], lab, RT, psych nurse, social work case manager, sports official, teacher, chief operating officer, case making machine operator)? Give summary @ -No Was smoking cessation discussed for >3mins.? @ -No Was critical care preformed (if so, how long)? @ -No Were there social determinants of health that impacted care today? How? (Homelessness, low income, unemployed, alcoholism, drug addiction, transportation, low edu. Level, literacy, decrease access to med. care, intermediate, rehab)? @ -No Was there de-escalation of care discussed even if they declined (Discuss DNR or withdrawal of care, Hospice)? DNR status @ -No What co-morbidities impacted this encounter? (DM, HTN, Smoking, COPD, CAD, Cancer, CVA, ARF, Chemo, Hep., AIDS, mental health diagnosis, sleep apnea, m orbid obesity)? @ -None Was patient admitted / discharged? Hospital course, mention meds given and route, prescriptions, significant lab abnormalities, going to OR and other pertinent info. @ -Discharged. Laboratory studies unremarkable. Ultrasound showed IUP. Additionally showed complex lesion possibly representing placental chorioangio ma. Patient discharged home in stable condition. Has follow-up with OB on the . Advised serial ultrasound to monitor mass. Discussed return precautions with patient who verbalizes agreement. Undiagnosed new problem with uncertain prognosis? @ -No Drug Therapy requiring intensive monitoring for toxicity (Heparin, Nitro, Insulin, Cardizem)? @ -No Were any procedures done? @ -No Diagnosis/symptom? @ -Abdominal pain Acute, or Chronic, or Acute on Chronic? @ -Acute Uncomplicated (without systemic symptoms) or Complicated (systemic symptoms)? @ -Uncomplicated Side effects of treatment? @ -No Exacerbation, Progression, or Severe Exacerbation? @ -No Poses a threat to life or bodily function? How? (Chest pain, USA, OR, pneumonia, PE, COPD, DKA, ARF, appy, cholecystitis, CVA, Diverticulitis, Homicidal, Suicidal, threat to staff... and all critical care pts) @ -No - Lab Data Result diagrams: 12/26/22 19:29 12/26/22 19:29 Lab Results 12/26/22 12/26/22 12/26/22 Range/Units 18:48 19:29 19:29 WBC 10.6 (3.8-10.6) k/uL RBC 4.09 (3.80-5.40) m/uL Hgb 13.0 (11.4-16.0) gm/dL Hct 36.6 (34.0-46.0) % MCV 89.5 (80.0-100.0) fL MCH 31.7 (25.0-35.0) pg MCHC 35.5 (31.0-37.0) g/dL RDW 13.2 (11.5-15.5) % Plt Count 260 (150-450) k/uL MPV 8.9 Neutrophils % 61 % Lymphocytes % 32 % Monocytes % 5 % Eosinophils % 1 % Basophils % 0 % Neutrophils # 6.5 (1.3-7.7) k/uL Lymphocytes # 3.4 (1.0-4.8) k/uL Monocytes # 0.5 (0-1.0) k/uL Eosinophils # 0.1 (0-0.7) k/uL Basophils # 0.0 (0-0.2) k/uL Sodium 133 L (137-145) mmol/L Potassium 3.9 (3.5-5.1) mmol/L Chloride 105 (98-107) mmol/L Carbon Dioxide 20 L (22-30) mmol/L Anion Gap 8 mmol/L BUN 9 (7-17) mg/dL Creatinine 0.48 L (0.52-1.04) mg/dL Est GFR (CKD-EPI)AfAm >90 (>60 ml/min/1.73 sqM) Est GFR (CKD-EPI)NonAf >90 (>60 ml/min/1.73 sqM) Glucose 65 L (74-99) mg/dL Calcium 9.0 (8.4-10.2) mg/dL Total Bilirubin 0.4 (0.2-1.3) mg/dL AST 58 H (14-36) U/L ALT 64 H (4-34) U/L Alkaline Phosphatase 51 (38-126) U/L Total Protein 7.2 (6.3-8.2) g/dL Albumin 3.9 (3.5-5.0) g/dL HCG, Quant 71666.6 mIU/mL Urine Color Yellow Urine Appearance Clear (Clear) Urine pH 5.5 (5.0-8.0) Ur Specific Royal 1.020 (1.001-1.035) Urine Protein Negative (Negative) Urine Glucose (UA) Negative (Negative) Urine Ketones Negative (Negative) Urine Blood Negative (Negative) Urine Nitrite Negative (Negative) Urine Bilirubin Negative (Negative) Urine Urobilinogen <2.0 (<2.0) mg/dL Ur Leukocyte Esterase Negative (Negative) Disposition Clinical Impression: Abdominal pain Disposition: HOME SELF-CARE Condition: Good Instructions (If sedation given, give patient instructions): Abdominal Pain (ED) Additional Instructions: Please return to the Emergency Department if symptoms worsen or any other concerns. Is patient prescribed a controlled substance at d/c from ED?: No Referrals: Valeria Schneider FNPBC [Primary Care Provider] - 1-2 days Time of Disposition: 20:48
[2022-12-26 19:10] LABS: Appearance,Urine Clear (Clear); Bilirubin,Urine Negative (Negative); Blood,Urine Negative (Negative); Color,Urine Yellow; Glucose,Urine (UA) Negative (Negative); Ketones,Urine Negative (Negative); Leukocyte Esterase,Urine Negative (Negative); Nitrite,Urine Negative (Negative); PH, Urine 5.5 (5.0-8.0); Protein,Urine Negative (Negative); Urobilinogen,Urine <2.0 mg/dL (<2.0)
[2022-12-26 19:43] LABS: Basophils % (A) 0 %; Eosinophils # (A) 0.1 k/uL (0-0.7); Eosinophils % (A) 1 %; HCT 36.6 % (34.0-46.0); Lymphocytes # (A) 3.4 k/uL (1.0-4.8); Lymphocytes % (A) 32 %; MCH 31.7 pg (25.0-35.0); MCHC 35.5 g/dL (31.0-37.0); MCV 89.5 fL (80.0-100.0); Mean Platelet Volume 8.9; Monocytes # (A) 0.5 k/uL (0-1.0); Monocytes % (A) 5 %; Neutrophils # (A) 6.5 k/uL (1.3-7.7); Neutrophils % (A) 61 %; Platelet Count 260 k/uL (150-450); RBC 4.09 m/uL (3.80-5.40); RDW 13.2 % (11.5-15.5); WBC 10.6 k/uL (3.8-10.6)
[2022-12-26 19:55] LABS: ALT 64 U/L (4-34); AST 58 U/L (14-36); African American GFR (CKD) >90 (>60 ml/min/1.73 sqM); Albumin 3.9 g/dL (3.5-5.0); Alkaline Phosphatase 51 U/L (38-126); Anion Gap 8 mmol/L; Blood Urea Nitrogen 9 mg/dL (7-17); Carbon Dioxide 20 mmol/L (22-30); Chloride 105 mmol/L (98-107); Glucose 65 mg/dL (74-99); Non-African American GFR(CKD) >90 (>60 ml/min/1.73 sqM); Potassium 3.9 mmol/L (3.5-5.1); Sodium 133 mmol/L (137-145); Total Bilirubin 0.4 mg/dL (0.2-1.3); Total Protein 7.2 g/dL (6.3-8.2)
--- NOTE | 2022-12-26 20:26 | US ---
EXAMINATION TYPE: US OB >= 14 wk fetus DATE OF EXAM: 12/26/2022 COMPARISON: None CLINICAL INDICATION: Female, 22 years old with history of abdominal pain +/- vag bleeding. 17 weeks p regnant; Pelvic pain and cramping. Mucous discharge TECHNIQUE: Transabdominal (TA) GESTATIONAL AGE / DATING Physician Established: Not yet established Dates by LMP: (16 weeks/0 days) EDC: 06/12/23 Dates by First Scan: (16 weeks/5 days) EDC: 06/07/23 Dates by Current Scan: (17 weeks/3 days) EDC: 06/02/23 SURVEY IUP: Single PLACENTA: Posterior PREVIA: complex lesion adjacent to placental end = 7.1 x 3.5cm KAREN: 10.4 cm Normal CERVICAL LENGTH (transabdominal: norm > 3.0cm): 3.3 cm BIOMETRY PRESENTATION: Breech LIE: Transverse with head maternal RT BPD: 3.7 cm 17 weeks / 2 days HC: 14.1 cm 17 weeks / 3 days AC: 11.7 cm 17 weeks / 4 days FL: 2.3 cm 17 weeks / 1 days ESTIMATED WEIGHT IN GRAMS: 188 grams ESTIMATED WEIGHT IN LBS/OZ: 0 lbs. 7 oz. WEIGHT PERCENTAGE BASED ON ESTABLISHED DATES: >98% HC/AC: 1.20 Normal FL/AC: 20% HEART RATE: 138 bpm RHYTHM: Normal IMPRESSION: 1. Complex lesion adjacent to the placenta possibly originating from the placenta. Findings could re present anatomic variant placenta versus placental chorioangioma versus placental hematoma versus oth er. Follow-up imaging or dedicated imaging Center 2. Single live intrauterine gestation with ultrasound age 17 weeks 3 days by today's study.
[2022-12-26 20:41] LABS: HCG,Quantitative Serum 39873.6 mIU/mL
[2022-12-26 20:49] VITALS: BP 118/70; PULSE 92; RESP 18
== END 2022-12-26 21:06 | disposition home or self-care (01) ==
LOC: EC 16:38
DX: O26.892 Other specified pregnancy related conditions, second trimester (principal); R10.30 Lower abdominal pain, unspecified; O99.342 Other mental disorders complicating pregnancy, second trimester; O99.332 Smoking (tobacco) complicating pregnancy, second trimester; F31.9 Bipolar disorder, unspecified; F90.9 Attention-deficit hyperactivity disorder, unspecified type; F17.200 Nicotine dependence, unspecified, uncomplicated; Z3A.17 17 weeks gestation of pregnancy
CPT/HCPCS: 36415; 76805; 80053; 81003; 84702; 85025; 96360; 99284

== ENCOUNTER 2023-05-16 14:59 | Outpatient (CLI) | payer OTHER ==
[2023-05-16 16:49] VITALS: BP 128/76; PULSE 79; RESP 16; TEMP 97.5
--- NOTE | 2023-05-19 13:40 | P.MSEPDOC ---
Presenting Problems - Arrival Data Date of Arrival on Unit: 05/16/23 Time of Arrival on Unit: 15:00 Mode of Transport: Ambulatory - Complaint OB-Reason for Admission/Chief Complaint: Rule Out SROM Comment: leaking since 1100 Medical History - Information : 1 Para: 0 Term: 0 : 0 Abortions: Spontaneous or Elective: 0 Number of Living Children: 0 - Gestational Age Gestational Age by GALLITO (wks/days): 36 Weeks and 6 Days - History Sexually Transmitted Diseases: HSV, HCV Review of Systems - Review of Systems Constitutional: No problems Breast: No problems ENT: No problems Cardiovascular: No problems Respiratory: No problems Gastrointestinal: No problems Genitourinary: No problems Musculoskeletal: No problems Neurological: No problems Skin: No problems Vital Signs - Temperature Temperature: 97.5 F Temperature Source: Temporal Artery Scan - Pulse Right Pulse Rate: 79 Pulse Assessment Method: Automatic Cuff - Respirations Respiratory Rate: 16 Oxygen Delivery Method: Room Air O2 Sat by Pulse Oximetry: 97 - Blood Pressure Right Arm Blood Pressure: 128/76 Blood Pressure Mean: 93 Blood Pressure Source: Automatic Cuff Medical Screen Scoring - Cervical Exam Membranes: Intact - Uterine Contractions Frequency From (mins): 5 Frequency To (mins): 10 Duration From (seconds): 60 Duration To (seconds): 60 Intensity: Mild Resting: Soft to palpation - Assessment - Baby A Baseline FHR: 125 Heart Rate - NICHD Category: Category I (Normal) Physician Notification - Physician Notified Physician Notified Date: 05/16/23 Physician Notified Time: 16:05 Physician: Shannan Smith Order Received: Yes Maternal Triage Index - Non-Urgent/Priority 4 Non-Urgent Priority 4: Yes Criteria Met for Priority 4: 36.7 SROM? 1100 Disposition - Disposition OB Disposition: Triage, Discharge to home, Written follow up instructions reviewed Discharge Date: 05/16/23 Discharge Time: 16:10 I agree with the RN Medical Screening Exam: No Physician's MSE Comment: I have neither seen nor examined the patient Case reviewed; plan agreed upon as documented in EMR&OBIX.: No Diagnosis: ENCNTR FOR SUPRVSN OF NORMAL PREG, UNSP, THIRD TRIMESTER
== END 2023-05-16 16:10 | disposition home or self-care (01) ==
LOC: FBPOP 14:59
PROVIDERS: ATTEND Obstetrics & Gynecology
DX: O47.03 False labor before 37 completed weeks of gestation, third trimester (principal); Z3A.36 36 weeks gestation of pregnancy
CPT/HCPCS: 59025; 84112; G0463; 99213

== ENCOUNTER 2023-05-25 12:23 | Outpatient (CLI) | payer OTHER ==
[2023-05-25 13:37] LABS: Creatinine,Urine Random 160.5 mg/dL
[2023-05-25 15:00] LABS: Basophils % (A) 0 %; Eosinophils # (A) 0.1 k/uL (0-0.7); Eosinophils % (A) 1 %; HCT 38.1 % (34.0-46.0); HGB 13.4 gm/dL (11.4-16.0); Lymphocytes # (A) 2.4 k/uL (1.0-4.8); Lymphocytes % (A) 30 %; MCH 32.1 pg (25.0-35.0); MCHC 35.2 g/dL (31.0-37.0); Mean Platelet Volume 11.9; Monocytes # (A) 0.4 k/uL (0-1.0); Monocytes % (A) 5 %; Neutrophils % (A) 62 %; RBC 4.18 m/uL (3.80-5.40); RDW 12.6 % (11.5-15.5)
[2023-05-25 15:01] LABS: ALT 26 U/L (4-34); AST 36 U/L (14-36); African American GFR (CKD) >90 (>60 ml/min/1.73 sqM); Blood Urea Nitrogen 8 mg/dL (7-17); Non-African American GFR(CKD) >90 (>60 ml/min/1.73 sqM); Uric Acid 3.8 mg/dL (3.7-7.4)
[2023-05-25 15:02] LABS: Platelet Count 178 k/uL (150-450)
[2023-05-25 15:21] LABS: Large Platelets Present
[2023-05-26 03:15] LABS: Appearance,Urine Turbid (Clear); Bacteria,Urine Few /hpf; Bilirubin,Urine Negative (Negative); Blood,Urine Negative (Negative); Calcium Oxalate Crystals,Urine Few /hpf; Color,Urine Yellow; Glucose,Urine (UA) Negative (Negative); Ketones,Urine Negative (Negative); Leukocyte Esterase,Urine Small (Negative); Mucus,Urine Moderate /hpf; Nitrite,Urine Negative (Negative); Protein,Urine Trace (Negative); RBC,Urine 3 /hpf (0-5); Specific Gravity,Urine 1.023 (1.001-1.035); Squamous Epithelial Cell,Urine 10 /hpf (0-4); Urobilinogen,Urine <2.0 mg/dL (<2.0); WBC,Urine 14 /hpf (0-5)
== END 2023-05-25 15:30 ==
LOC: FBPOP 12:23
PROVIDERS: ATTEND Obstetrics & Gynecology
DX: O13.3 Gestational [pregnancy-induced] hypertension without significant proteinuria, third trimester (principal); O26.86 Pruritic urticarial papules and plaques of pregnancy (PUPPP); Z3A.38 38 weeks gestation of pregnancy
CPT/HCPCS: 36415; 59025; 81001; 82239; 82565; 82570; 84156; 84450; 84460; 84520; 84550; 85025; 87086

== ENCOUNTER 2023-05-30 17:00 | Inpatient (IN) | payer OTHER ==
--- NOTE | 2023-05-30 18:06 | P.HPOB ---
History of Present Illness H&P Date: 05/30/23 Chief Complaint: Induction of Labor Ms. Contreras is a 23 year old at 38 weeks and 6 days with EDC of 06/07/2022 by 6 week US presenting for elective induction of labor. The has been complicated by Hepatitis C for which the patient has consulted with [facility] and follows with Dr. Doshi. The patient also has a history of HSV for which she has been taking antiviral therapy since 36 weeks. She has not had an outbreak during the . The patient has a social history significant for heroin use and has been clean since 2022. There is a circumvallate placenta that has been noted on ultrasound. In addition, the fetus measued in the 84%ile at 31 weeks. 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 This is a healthy-appearing in no apparent distress. Breathing is non-labored. Abdomen is gravid and non-tender. Cervical exam is 1cm, 70 effacement, -3 station. A cooks catheter is placed using a speculum. Of note, no herpes lesions are noted externally or internally during speculum exam. The cooks catheter balloons are filled with 60cc of sterile water each. Extremities non-tender and non-edematous. heart tones are <<Category I>> and tocometer is graphing <<contractions every 2- 4 minutes>>. Assessment and Plan Assessment: 23 year old at 38 weeks and 6 days with complicated by Hepatitis C infection, circumvallate placenta, and maternal history of heroin use who presents for elective induction of labor Plan: Admit, clear liquid diet, cooks catheter x12 hours with low dose oxytocin then transition to pitocin per protocol after cooks catheter is removed. Continuous EFM and tocometer. Anticipate vaginal delivery. Time with Patient: Less than 30
[2023-05-30] MEDS ORDERED: miSOPROStoL 200 MCG TAB PO PRN (18:08)
[2023-05-30] MEDS ORDERED: CARBOPROST TROMETHAMINE 250 MCG/ML 1 ML AMP IM PRN (18:08)
[2023-05-30] MEDS ORDERED: TERBUTALINE 1 MG/ML VIAL SQ PRN (18:08)
[2023-05-30] MEDS ORDERED: TRANEXAMIC 1,000 MG/100ML-NACL 1,000 MG in EMPTY BAG 1 BAG IV PRN (18:08)
[2023-05-30] MEDS ORDERED: LIDOCAINE 0.5% (PF) 5 MG/ML (50 ML SDV) SQ PRN (18:08)
[2023-05-30] MEDS ORDERED: METHYLERGONOVINE 0.2 MG/ML 1 ML AMP IM PRN (18:08)
[2023-05-30] MEDS ORDERED: OXYTOCIN 10 UNIT/ML 1 ML VIAL IM PRN (18:08)
[2023-05-30] MEDS: LACTATED RINGERS 1,000 ML IV SCH ×2 (18:20→23:00)
[2023-05-30] MEDS ORDERED: OXYTOCIN 30 UNITS/500 ML NS 30 UNIT in SALINE 1 500ML.BAG IV SCH (18:30)
[2023-05-30 18:50] LABS: Basophils % (A) 0 %; Eosinophils % (A) 0 %; HCT 37.3 % (34.0-46.0); HGB 13.3 gm/dL (11.4-16.0); Lymphocytes # (A) 2.7 k/uL (1.0-4.8); Lymphocytes % (A) 32 %; MCH 32.3 pg (25.0-35.0); MCHC 35.5 g/dL (31.0-37.0); Mean Platelet Volume 11.8; Monocytes # (A) 0.5 k/uL (0-1.0); Monocytes % (A) 6 %; Neutrophils % (A) 60 %; Platelet Count 178 k/uL (150-450); RDW 12.8 % (11.5-15.5); WBC 8.4 k/uL (3.8-10.6)
[2023-05-30 20:03] LABS: Amphetamine Screen,Urine Not Detected (NotDetected); Barbiturate Screen,Urine Not Detected (NotDetected); Benzodiazepines Screen,Urine Not Detected (NotDetected); Cocaine Screen,Urine Not Detected (NotDetected); Methadone Screen, Urine Not Detected (NotDetected); Opiate Screen,Urine Not Detected (NotDetected); Oxycodone Screen, Urine Not Detected (NotDetected); Phencyclidine Screen,Urine Not Detected (NotDetected); Tricyclic Antidepressant,Urine Not Detected (NotDetected); Urn Cannabinoid Scrn Not Detected (NotDetected)
[2023-05-30] MEDS: ACETAMINOPHEN TAB 325 MG TAB PO PRN (21:52)
[2023-05-31] MEDS ORDERED: fentaNYL (PF) 50 MCG/ML 5 ML AMP ONE (03:04)
[2023-05-31] MEDS ORDERED: SODIUM CHLORIDE 0.9% 250 ML BAG ONE (03:04)
[2023-05-31] MEDS ORDERED: ROPIVACAINE 5 MG/ML 30 ML VIAL ONE (03:04)
[2023-05-31] MEDS: LACTATED RINGERS 1,000 ML IV SCH ×2 (04:09→20:00)
--- NOTE | 2023-05-31 15:03 | P.PROBDLV ---
Vaginal Delivery Note - . Vaginal Delivery Note: DATE OF SERVICE: 05/31/2023 PROCEDURE: Normal Vaginal Delivery ATTENDING: Dr. Shannan Smith MD ESTIMATED BLOOD LOSS: 500 mL FINDINGS: VMI, Apgars 8/9. Weight 8 pounds and 5 ounces (3750 grams) PROCEDURE: Ms. Contreras is a 23 year old at 39 weeks presenting to labor and delivery for induction of labor. The has been complicated by maternal hepatitis C infection, a maternal history of heroin use, and a circumvallate placenta. For further details, please review the admitting H&P. Cooks catheter was placed yesterday evening with low-dose pitocin. The catheter fell out approximately 10 hours after placement and the patient had spontaneous rupture of membranes at 132 revealing clear fluid. The patient received epidural anesthesia per her request. The patient was completely dilated at 1357. She pushed effectively. A viable male infant was delivered at 1421. The infant was placed on the maternal abdomen and bulb suctioned. The infant was noted to be spontaneously crying. Cord was clamped and cut after a 30-second delay. The infant was handed off to the pediatric team. The umbilical cord avulsed during gentle cord traction. Placenta was delivered manually at 1432. The placenta was inspected to ensure that the whole placenta had been removed. Oxytocin was started to facilitate uterine tone. Uterine fundus was found to be boggy and atonic. The patient had a hemorrhage. Oxytocin was run wide open and IM Methergine was administered. The uterus was then firm below the umbilicus and bleeding was minimal. Thorough examination of the cervix, vagina, periurethral area, and perineum revealed a second degree periurethral laceration which was repaired with 2-0 Vicryl in the usual fashion. The patient is stable and allowed to begin the bonding process.
[2023-05-31] MEDS ORDERED: HYDROCORTISONE 2.5% RECTAL CREAM 30 GM TUBE RECTAL PRN (15:04)
[2023-05-31] MEDS ORDERED: ZOLPIDEM 5 MG TAB PO PRN (15:04)
[2023-05-31] MEDS ORDERED: IBUPROFEN 600 MG TAB PO PRN (15:04)
[2023-05-31] MEDS ORDERED: BENZOCAINE/MENTHOL SPRAY 1 GM/SPRAY AEROSOL TOPICAL PRN (15:04)
[2023-05-31] MEDS ORDERED: diphenhydrAMINE 50 MG CAP PO PRN (15:04)
[2023-05-31] MEDS ORDERED: LANOLIN CREAM 5 GM TUBE TOPICAL PRN (15:04)
[2023-05-31] MEDS ORDERED: ACETAMINOPHEN TAB 325 MG TAB PO PRN (15:04)
[2023-05-31] MEDS ORDERED: diphenhydrAMINE 25 MG CAP PO PRN (15:04)
[2023-05-31] MEDS ORDERED: diphenhydrAMINE 50 MG/ML 1 ML VIAL IVP PRN ×2 (15:04)
[2023-05-31] MEDS ORDERED: SIMETHICONE 80 MG CHEWABLE PO PRN (15:04)
[2023-05-31] MEDS: ACETAMINOPHEN TAB 325 MG TAB PO PRN (21:10)
[2023-05-31] MEDS: SENNOSIDES-DOCUSATE SODIUM 1 EACH TAB PO SCH (21:11)
[2023-06-01] MEDS: SENNOSIDES-DOCUSATE SODIUM 1 EACH TAB PO SCH (07:28)
[2023-06-01] MEDS: ACETAMINOPHEN TAB 325 MG TAB PO PRN (07:29)
[2023-06-01 07:50] LABS: Basophils % (A) 0 %; Eosinophils # (A) 0.1 k/uL (0-0.7); Eosinophils % (A) 1 %; HCT 28.5 % (34.0-46.0); Lymphocytes # (A) 2.9 k/uL (1.0-4.8); Lymphocytes % (A) 22 %; MCH 32.2 pg (25.0-35.0); MCHC 35.3 g/dL (31.0-37.0); Mean Platelet Volume 11.3; Monocytes # (A) 0.6 k/uL (0-1.0); Monocytes % (A) 5 %; Neutrophils # (A) 9.6 k/uL (1.3-7.7); Neutrophils % (A) 72 %; RBC 3.13 m/uL (3.80-5.40); RDW 12.9 % (11.5-15.5); WBC 13.4 k/uL (3.8-10.6)
[2023-06-01 07:51] LABS: HGB 10.1 gm/dL (11.4-16.0)
[2023-06-01 08:03] VITALS: BP 107/73; PULSE 83; RESP 18; TEMP 98
--- NOTE | 2023-06-01 08:25 | P.DS ---
Providers Date of admission: 05/30/23 17:06 Expected date of discharge: 06/01/23 Attending physician: Shannan Smith MD Primary care physician: Valeria Schneider, [facility] Hospital Course: Ms. Contreras is a 23 year old now PPD#1 s/p vaginal delivery after induction of labor at 39 weeks. The was complicated by maternal Hepatitis C infection (for which she follows with GI and had a consultation with [facility]), maternal history of heroin use, and circumvallate placenta. The delivery was complicated by a small hemorrhage of 500 mL which was managed with oxytocin and intramuscular methergine. The patient is doing well this morning and had no acute events overnight. She has no complaints this morning. She reports minimal lochia, passing flatus, voiding without difficulty, ambulating, and eating/drinking without nausea or vomiting. Infant doing well at bedside, s/p circumcision. She denies chest pain, shortness of breathing, fevers, or chills overnight. She denies pain or swelling in the legs. restrictions are reviewed with the patient including pelvic rest for 6 weeks. The patient is encouraged to call the office if she experiences any heavy bleeding, foul-smelling discharge, breast complaints, or any if she has any other concerns. She will follow up in the office in 6 weeks for exam. All questions are answered. Assessment: 23 year old PPD#1 s/p vaginal delivery complicated by hemorrhage 2/2 uterine atony Patient Condition at Discharge: Good Plan - Discharge Summary New Discharge Prescriptions: New Ibuprofen [Motrin] 600 mg PO Q6HR PRN #30 tab PRN Reason: Mild Pain (Scale 1 To 3) Acetaminophen Tab [Tylenol] 650 mg PO Q6H PRN #30 tab PRN Reason: Mild Pain (Scale 1 To 3) No Action valACYclovir HCL [Valacyclovir] 500 mg PO DAILY Sertraline HCl [Zoloft] 50 mg PO DAILY Discharge Medication List Sertraline HCl [Zoloft] 50 mg PO DAILY 05/16/23 [History] valACYclovir HCL [Valacyclovir] 500 mg PO DAILY 05/16/23 [History] Acetaminophen Tab [Tylenol] 650 mg PO Q6H PRN #30 tab 06/01/23 [Rx] Ibuprofen [Motrin] 600 mg PO Q6HR PRN #30 tab 06/01/23 [Rx] Follow up Appointment(s)/Referral(s): Shannan Smith MD [STAFF PHYSICIAN] - 6 Weeks Activity/Diet/Wound Care/Special Instructions: Instructions 1. Do not begin any exercise program for 3 weeks. 2. Do not resume sexual relations for 6 weeks or longer if uncomfortable. 3. You may take tub baths or showers at any time. 4. You may use tampons if desired after 6 weeks. 5. Keep any areas repaired with stitches clean and dry. 6. If you are not nursing, wear a good fitting, supportive bra during the day and limit fluid intake for at least 1 week to prevent breast engorgement. 7. Call the office, , within the next week to make appointment for your 6 week checkup if it has not already been made. 8. Report any of the following occurrences to the doctor promptly: a. Heavy, excessive bleeding b. Chills, fever c. Burning or frequency of urination d. Pain or redness and breasts if nursing e. Increasing pain or swelling of vulva (stitches). In addition to the above instructions, the following additional should be followed: 1. No heavy lifting or straining (exercising) until after 6 week checkup. 2. Keep abdominal incision clean and dry: You may wear a dressing if more comfortable. 3. Make office appointment for 2 weeks after delivery date. Discharge Disposition: HOME SELF-CARE
[2023-06-01 09:03] LABS: Platelet Count 186 k/uL (150-450)
== END 2023-06-01 15:15 | disposition home or self-care (01) | DRG 560 ==
LOC: 4FBP 17:06
PROVIDERS: ADMIT Obstetrics & Gynecology; ATTEND Obstetrics & Gynecology
PROC: 10D17Z9 Manual Extraction of Products of Conception, Retained, Via Natural or Artificial Opening (ICD-10-PCS; principal; 2023-05-31)
PROC: 3E033VJ Introduction of Other Hormone into Peripheral Vein, Percutaneous Approach (ICD-10-PCS; 2023-05-31)
PROC: 10E0XZZ Delivery of Products of Conception, External Approach (ICD-10-PCS; 2023-05-31)
PROC: 0UQMXZZ Repair Vulva, External Approach (ICD-10-PCS; 2023-05-31)
PROC: 0U7C7ZZ Dilation of Cervix, Via Natural or Artificial Opening (ICD-10-PCS; 2023-05-31)
DX: O98.42 Viral hepatitis complicating childbirth (principal); Z37.0 Single live birth; O72.1 Other immediate postpartum hemorrhage; O99.344 Other mental disorders complicating childbirth; B19.20 Unspecified viral hepatitis C without hepatic coma; F60.9 Personality disorder, unspecified; F11.91 Opioid use, unspecified, in remission; O43.113 Circumvallate placenta, third trimester; O71.82 Other specified trauma to perineum and vulva; Z3A.39 39 weeks gestation of pregnancy; Z79.899 Other long term (current) drug therapy; Z28.311 Partially vaccinated for COVID-19
CPT/HCPCS: 80306; 85025; 86850; 86900; 86901

== ENCOUNTER → 2023-09-16 | Outpatient (CLI) | payer OTHER ==
--- NOTE | 2023-09-17 03:28 | US ---
EXAMINATION TYPE: US abdomen complete DATE OF EXAM: 09/16/2023 COMPARISON: US liver 12/08/2022 CLINICAL INDICATION: Female, 23 years old with history of R79.89 ELEVATED LET R76.8 HEP C ANTIBODY PO S IN BL; Chronic Hep C, pt post 3 months TECHNIQUE: Multiple sonographic images of the abdomen are obtained. FINDINGS: EXAM MEASUREMENTS: Liver Length: 18.2 cm Gallbladder Wall: 0.2 cm CBD: 0.3 cm Spleen: 10.6 cm Right Kidney: 10.9 x 4.5 x 5.8 cm Left Kidney: 10.5 x 5.4 x 5.0 cm TIRE ADJUSTER NOTES: Pancreas: 2mm panc duct visualized, tail obscured by overlying bowel gas. Liver: Slightly enlarged, hyperechoic lesion right superior lobe as visualized on prior= 1.8 x 1.5 x 1.5 cm Gallbladder: wnl Evidence for sonographic Siegel's sign: No CBD: wnl Spleen: wnl Right Kidney: wnl Left Kidney: wnl Upper IVC: wnl Abd Aorta: wnl The liver is homogenous. Noncirrhotic morphology. Relatively stable homogeneous hyperechoic lesion wi thin the right hepatic lobe. The intrahepatic portion of the IVC and proximal abdominal aorta are wit hin normal limits. There is no evidence of cholelithiasis. Common bile duct is unremarkable. The v isualized portions of the pancreas are homogenous. The spleen is unremarkable. Kidneys are symmetri c and free of hydronephrosis. No renal lesions are seen. IMPRESSION: Relatively stable 1.8 cm right hepatic lobe hyperechoic lesion. Probable hemangioma. No definitive ne w hepatic lesions. Consider continued ultrasound follow-up in the setting of reported hepatitis C.
== END | disposition home or self-care (01) ==
LOC: RADUSWWP 08:39
PROVIDERS: ATTEND Family Medicine
DX: K76.89 Other specified diseases of liver (principal); B18.2 Chronic viral hepatitis C; R79.89 Other specified abnormal findings of blood chemistry; R76.8 Other specified abnormal immunological findings in serum
CPT/HCPCS: 76700

== ENCOUNTER 2024-05-07 14:04 | Emergency (ER) | payer OTHER ==
[2024-05-07 14:19] VITALS: TEMP 98
--- NOTE | 2024-05-07 14:24 | ED ---
Abdominal Pain HPI - General Source: patient, RN notes reviewed Mode of arrival: ambulatory Limitations: no limitations <Jose Brush - Last Filed: 05/07/24 14:23> - General Source: patient, RN notes reviewed, old records reviewed Mode of arrival: ambulatory Limitations: no limitations - History of Present Illness MD Complaint: abdominal pain -: days(s) Location: suprapubic Radiation: suprapubic Migration to: suprapubic Severity: moderate Severity scale (1-10): 4 Quality: stabbing, aching Consistency: constant Improves With: nothing Worsens With: nothing Associated Symptoms: nausea Treatments Prior to Arrival: other (0) <Jaime Solomon - Last Filed: 05/07/24 18:44> - General Chief Complaint: Abdominal Pain Stated Complaint: Abdominal Pain Time Seen by Provider: 05/07/24 14:21 - History of Present Illness Initial Comments: Quick note 23-year-old female presents emergency department with chief complaint of lower abdominal pelvic pain. Patient states started after vomiting states feels like a sharp stabbing pain in her vagina. Patient has no urinary symptoms denies any fevers or chills she is states that she had a child 11 months ago. (Jose Brush) This is a 23-year-old male to female to the ER for evaluation of pelvic pain. Patient believes she is having some sort of uterine and vaginal bladder prolapse. She had a history of this after recent vaginal delivery*perceptive stabbing vaginal pain currently with pelvic pain. Severe (Jaime Solomon) - Related Data Home Medications Medication Instructions Recorded Confirmed Sertraline HCl [Zoloft] 50 mg PO DAILY 05/16/23 05/07/24 valACYclovir HCL [Valacyclovir] 500 mg PO DAILY 05/16/23 05/07/24 Glecaprevir/Pibrentasvir [Mavyret 1 dose PO DIRECTED 05/07/24 05/07/24 100-40 mg Tablet] Wwd-Lzxb-Qgbbh Acid 1 cap PO DAILY 05/07/24 05/07/24 [-U Capsule (formulary)] Allergies Allergy/AdvReac Type Severity Reaction Status Date / Time No Known Allergies Allergy Verified 05/07/24 14:19 Review of Systems ROS Other: All systems not noted in ROS Statement are negative. <Jose Brush - Last Filed: 05/07/24 14:23> ROS Other: All systems not noted in ROS Statement are negative. <Jaime Solomon - Last Filed: 05/07/24 18:44> ROS Statement: Those systems with pertinent positive or pertinent negative responses have been documented in the HPI. 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 History of Any Multi-Drug Resistant Organisms: None Reported Past Surgical History: No Surgical Hx Reported Past Anesthesia/Blood Transfusion Reactions: No Reported Reaction Past Psychological History: ADD/ADHD, Bipolar, Depression, PTSD Smoking Status: Current every day smoker, Vaper Past Alcohol Use History: None Reported Past Drug Use History: None Reported, Cocaine, Heroin, Marijuana, Methamphetamine, Opiates, Prescription Drug Abuse - Past Family History Father Family Medical History: No Reported History <Jose Brush - Last Filed: 05/07/24 14:23> General Exam Limitations: no limitations General appearance: alert, in no apparent distress <Jose Brush - Last Filed: 05/07/24 14:23> General appearance: alert, in no apparent distress Head exam: Present: atraumatic, normocephalic, normal inspection Eye exam: Present: normal appearance, PERRL, EOMI. Absent: scleral icterus, conjunctival injection, periorbital swelling ENT exam: Present: normal exam, mucous membranes moist Neck exam: Present: normal inspection. Absent: tenderness, meningismus, lymphadenopathy Respiratory exam: Present: normal lung sounds bilaterally. Absent: respiratory distress, wheezes, rales, rhonchi, stridor Cardiovascular Exam: Present: regular rate, normal rhythm, normal heart sounds. Absent: systolic murmur, diastolic murmur, rubs, gallop, clicks GI/Abdominal exam: Present: soft, tenderness, guarding, normal bowel sounds. Absent: distended, rebound, rigid External exam: Present: normal external exam Speculum exam: Present: normal speculum exam By manual exam: Present: normal by manual exam Extremities exam: Present: normal inspection, full ROM, normal capillary refill. Absent: tenderness, pedal edema, joint swelling, calf tenderness Back exam: Present: normal inspection Neurological exam: Present: alert, oriented X3, CN II-XII intact Psychiatric exam: Present: normal affect, normal mood Skin exam: Present: warm, dry, intact, normal color. Absent: rash <Jaime Solomon - Last Filed: 05/07/24 18:44> - General Exam Comments Initial Comments: Visual Physical Exam Vital signs reviewed General: Well-appearing, nontoxic, no acute distress. Head: Normocephalic, atraumatic Eyes: PERRLA, EOMI ENT: Airway patent Chest: Nonlabored breathing Skin: No visual rash, normal skin tone Neuro: Alert and oriented 3 Musculoskeletal: No gross abnormalities (Jose Brush) Course <Jaime Solomon - Last Filed: 05/07/24 18:44> Vital Signs 05/07/24 14:17 Temperature 98 F Pulse Rate 76 Respiratory 20 Rate Blood Pressure 130/81 O2 Sat by Pulse 98 Oximetry - Reevaluation(s) Reevaluation #1: 05/07/24 17:52 Medical records reviewed (Jaime Solomon) Reevaluation #2: 05/07/24 17:52 Patient symptoms unchanged (Jaime Solomon) Reevaluation #3: 05/07/24 17:52 Patient informed of results questions answered (Jaime Solomon) Reevaluation #4: Was pt. sent in by a medical professional or institution (, PA, SUSTAINABLE AGRICULTURE SPECIALIST, urgent care, hospital, or usp...) When possible be specific @ -no Did you speak to anyone other than the patient for history (EMS, parent, family, police, friend...)? What history was obtained from this source @ -no Did you review nursing and triage notes (agree or disagree)? Why? @ -agree Are old charts reviewed (outside hosp., previous admission, EMS record, old EKG, old radiological studies, urgent care reports/EKG's, usp records)? Report findings @ -yes Differential Diagnosis (chest pain, altered mental status, abdominal pain women, abdominal pain men, vaginal bleeding, weakness, fever, dyspnea, syncope, headache, dizziness, GI bleed, back pain, seizure, CVA, palpatations, mental health, musculoskeletal)? @ -prior EKG interpreted by me (3pts min.). @ -yes X-rays interpreted by me (1pt min.). @ -yes negative for acute disease CT interpreted by me (1pt min.). @ -no U/S interpreted by me (1pt. min.). @ -no What testing was considered but not performed or refused? (CT, X-rays, U/S, labs)? Why? @ -none What meds were considered but not given or refused? Why? @ -none Did you discuss the management of the patient with other professionals (professionals i.e. , PA, SUSTAINABLE AGRICULTURE SPECIALIST, lab, RT, psych nurse, social media designer, computer information science professor, teacher, operations officer trust department, telephonic case manager)? Give summary @ -no Was smoking cessation discussed for >3mins.? @ -no Was critical care preformed (if so, how long)? @ -no Were there social determinants of health that impacted care today? How? (Homelessness, low income, unemployed, alcoholism, drug addiction, transportation, low edu. Level, literacy, decrease access to med. care, skilled nursing, rehab)? @ -none Was there de-escalation of care discussed even if they declined (Discuss DNR or withdrawal of care, Hospice)? DNR status @ -no What co-morbidities impacted this encounter? (DM, HTN, Smoking, COPD, CAD, Cancer, CVA, ARF, Chemo, Hep., AIDS, mental health diagnosis, sleep apnea, morbid obesity)? @ -none Was patient admitted / discharged? Hospital course, mention meds given and route, prescriptions, significant lab abnormalities, going to OR and other pertinent info. @ - Undiagnosed new problem with uncertain prognosis? @ -no Drug Therapy requiring intensive monitoring for toxicity (Heparin, Nitro, Insulin, Cardizem)? @ -no Were any procedures done? @ -no Diagnosis/symptom? @ - Acute, or Chronic, or Acute on Chronic? @ -Acute Uncomplicated (without systemic symptoms) or Complicated (systemic symptoms)? @ -Complicated Side effects of treatment? @ -no Exacerbation, Progression, or Severe Exacerbation? @ -exacerbation Poses a threat to life or bodily function? How? (Chest pain, USA, SC, pneumonia, PE, COPD, DKA, ARF, appy, cholecystitis, CVA, Diverticulitis, Homicidal, Suicidal, threat to staff... and all critical care pts) @ -yes (Jaime Solomon) Reevaluation #5: Differential Abdominal Pain Women: Appendicitis, Cholecystitis, diverticulosis, ischemic bowel, pancreatitis, hepatitis, UTI, gastroenteritis, AAA, incarcerated hernia, bowel obstruction, constipation, inflammatory bowel, hepatitis, peptic ulcer disease, splenic infarction, perforated viscus, vulvitis, ovarian torsion, PID, kidney stone, sarah centa abruption, this is not meant to be an all-inclusive list (Jaime Solomon) Medical Decision Making <Jose Brush - Last Filed: 05/07/24 14:23> - Lab Data Result diagrams: 05/07/24 15:35 05/07/24 15:35 - Radiology Data Radiology results: report reviewed (CT abdomen pelvis positive for ruptured ovarian cyst), image reviewed <Jaime Solomon - Last Filed: 05/07/24 18:44> - Medical Decision Making I completed the quick note portion of this chart signed Jose Brush PA-C (Jose Brush) 23 female of abdominal pain pelvic pain patient was concern for bladder or uterine prolapse, there is no evidence on this on exam, patient has ruptured ovarian cyst noted on CT scan and can be discharged home (Jaime Solomon) - Lab Data Lab Results 05/07/24 05/07/24 05/07/24 Range/Units 15:35 15:35 15:35 WBC 8.2 (3.8-10.6) k/uL RBC 4.25 (3.80-5.40) m/uL Hgb 13.1 (11.4-16.0) gm/dL Hct 38.9 (34.0-46.0) % MCV 91.6 (80.0-100.0) fL MCH 30.9 (25.0-35.0) pg MCHC 33.7 (31.0-37.0) g/dL RDW 12.7 (11.5-15.5) % Plt Count 225 (150-450) k/uL MPV 8.3 Neutrophils % 50 % Lymphocytes % 38 % Monocytes % 7 % Eosinophils % 2 % Basophils % 1 % Neutrophils # 4.1 (1.3-7.7) k/uL Lymphocytes # 3.2 (1.0-4.8) k/uL Monocytes # 0.6 (0-1.0) k/uL Eosinophils # 0.1 (0-0.7) k/uL Basophils # 0.1 (0-0.2) k/uL Sodium 137 (137-145) mmol/L Potassium 4.1 (3.5-5.1) mmol/L Chloride 107 (98-107) mmol/L Carbon Dioxide 19 L (22-30) mmol/L Anion Gap 11 mmol/L BUN 14 (7-17) mg/dL Creatinine 0.70 (0.52-1.04) mg/dL Est GFR (CKD-EPI)AfAm >90 (>60 ml/min/1.73 sqM) Est GFR (CKD-EPI)NonAf >90 (>60 ml/min/1.73 sqM) Glucose 88 (74-99) mg/dL Plasma Lactic Acid Tanner 1.0 (0.7-2.0) mmol/L Calcium 9.1 (8.4-10.2) mg/dL Total Bilirubin 0.3 (0.2-1.3) mg/dL AST 26 (14-36) U/L ALT 14 (4-34) U/L Alkaline Phosphatase 58 (38-126) U/L Total Protein 6.9 (6.3-8.2) g/dL Albumin 4.3 (3.5-5.0) g/dL Lipase 238 (23-300) U/L Urine Color Urine Appearance (Clear) Urine pH (5.0-8.0) Ur Specific [place] (1.001-1.035) Urine Protein (Negative) Urine Glucose (UA) (Negative) Urine Ketones (Negative) Urine Blood (Negative) Urine Nitrite (Negative) Urine Bilirubin (Negative) Urine Urobilinogen (<2.0) mg/dL Ur Leukocyte Esterase (Negative) Urine RBC (0-5) /hpf Urine WBC (0-5) /hpf Ur Squamous Epith Cells (0-4) /hpf Urine Mucus (None) /hpf Urine HCG, Qual (Not Detectd) 05/07/24 05/07/24 Range/Units 16:57 16:57 WBC (3.8-10.6) k/uL RBC (3.80-5.40) m/uL Hgb (11.4-16.0) gm/dL Hct (34.0-46.0) % MCV (80.0-100.0) fL MCH (25.0-35.0) pg MCHC (31.0-37.0) g/dL RDW (11.5-15.5) % Plt Count (150-450) k/uL MPV Neutrophils % % Lymphocytes % % Monocytes % % Eosinophils % % Basophils % % Neutrophils # (1.3-7.7) k/uL Lymphocytes # (1.0-4.8) k/uL Monocytes # (0-1.0) k/uL Eosinophils # (0-0.7) k/uL Basophils # (0-0.2) k/uL Sodium (137-145) mmol/L Potassium (3.5-5.1) mmol/L Chloride (98-107) mmol/L Carbon Dioxide (22-30) mmol/L Anion Gap mmol/L BUN (7-17) mg/dL Creatinine (0.52-1.04) mg/dL Est GFR (CKD-EPI)AfAm (>60 ml/min/1.73 sqM) Est GFR (CKD-EPI)NonAf (>60 ml/min/1.73 sqM) Glucose (74-99) mg/dL Plasma Lactic Acid Tanner (0.7-2.0) mmol/L Calcium (8.4-10.2) mg/dL Total Bilirubin (0.2-1.3) mg/dL AST (14-36) U/L ALT (4-34) U/L Alkaline Phosphatase (38-126) U/L Total Protein (6.3-8.2) g/dL Albumin (3.5-5.0) g/dL Lipase (23-300) U/L Urine Color Colorless Urine Appearance Clear (Clear) Urine pH 7.0 (5.0-8.0) Ur Specific [place] 1.017 (1.001-1.035) Urine Protein Negative (Negative) Urine Glucose (UA) Negative (Negative) Urine Ketones Negative (Negative) Urine Blood Negative (Negative) Urine Nitrite Negative (Negative) Urine Bilirubin Negative (Negative) Urine Urobilinogen <2.0 (<2.0) mg/dL Ur Leukocyte Esterase Trace H (Negative) Urine RBC <1 (0-5) /hpf Urine WBC <1 (0-5) /hpf Ur Squamous Epith Cells 1 (0-4) /hpf Urine Mucus Rare H (None) /hpf Urine HCG, Qual Not Detected (Not Detectd) Disposition <Jose Brush M - Last Filed: 05/07/24 14:23> Is patient prescribed a controlled substance at d/c from ED?: No Time of Disposition: 18:30 <Jaime Solomon - Last Filed: 05/07/24 18:44> Clinical Impression: Abdominal pain, Ruptured ovarian cyst Disposition: HOME SELF-CARE Condition: Good Instructions (If sedation given, give patient instructions): Ruptured Ovarian Cyst (ED) Referrals: Layne Rae MD [Primary Care Provider] - 1-2 days
[2024-05-07 15:44] LABS: Basophils # (A) 0.1 k/uL (0-0.2); Basophils % (A) 1 %; Eosinophils # (A) 0.1 k/uL (0-0.7); Eosinophils % (A) 2 %; HCT 38.9 % (34.0-46.0); HGB 13.1 gm/dL (11.4-16.0); Lymphocytes # (A) 3.2 k/uL (1.0-4.8); Lymphocytes % (A) 38 %; MCH 30.9 pg (25.0-35.0); MCHC 33.7 g/dL (31.0-37.0); MCV 91.6 fL (80.0-100.0); Mean Platelet Volume 8.3; Monocytes # (A) 0.6 k/uL (0-1.0); Monocytes % (A) 7 %; Neutrophils # (A) 4.1 k/uL (1.3-7.7); Neutrophils % (A) 50 %; Platelet Count 225 k/uL (150-450); RBC 4.25 m/uL (3.80-5.40); RDW 12.7 % (11.5-15.5); WBC 8.2 k/uL (3.8-10.6)
[2024-05-07 16:17] LABS: ALT 14 U/L (4-34); AST 26 U/L (14-36); African American GFR (CKD) >90 (>60 ml/min/1.73 sqM); Albumin 4.3 g/dL (3.5-5.0); Alkaline Phosphatase 58 U/L (38-126); Anion Gap 11 mmol/L; Blood Urea Nitrogen 14 mg/dL (7-17); Calcium 9.1 mg/dL (8.4-10.2); Carbon Dioxide 19 mmol/L (22-30); Chloride 107 mmol/L (98-107); Glucose 88 mg/dL (74-99); Lipase 238 U/L (23-300); Non-African American GFR(CKD) >90 (>60 ml/min/1.73 sqM); Potassium 4.1 mmol/L (3.5-5.1); Sodium 137 mmol/L (137-145); Total Bilirubin 0.3 mg/dL (0.2-1.3); Total Protein 6.9 g/dL (6.3-8.2)
[2024-05-07] MEDS: SODIUM CHLORIDE 0.9% 1,000 ML IV STA (17:19)
[2024-05-07] MEDS: KETOROLAC 15 MG/ML 1 ML VIAL IVP STA (17:20)
[2024-05-07 17:41] LABS: Appearance,Urine Clear (Clear); Bilirubin,Urine Negative (Negative); Blood,Urine Negative (Negative); Color,Urine Colorless; Glucose,Urine (UA) Negative (Negative); Ketones,Urine Negative (Negative); Leukocyte Esterase,Urine Trace (Negative); Mucus,Urine Rare /hpf; Nitrite,Urine Negative (Negative); Protein,Urine Negative (Negative); RBC,Urine <1 /hpf (0-5); Specific Gravity,Urine 1.017 (1.001-1.035); Squamous Epithelial Cell,Urine 1 /hpf (0-4); Urobilinogen,Urine <2.0 mg/dL (<2.0); WBC,Urine <1 /hpf (0-5)
--- NOTE | 2024-05-07 18:03 | CT ---
EXAMINATION TYPE: CT abdomen pelvis w con DATE OF EXAM: 05/07/2024 HISTORY: Pt states abd pain for last 2 hour after having bowel movement. CT DLP: 816.8mGycm Automated Exposure Control for Dose Reduction was Utilized. CONTRAST: CT scan of the abdomen and pelvis is performed with IV Contrast, patient injected with 100 ml mL of I sovue 300. COMPARISON: Prior abdominal ultrasound September 16, 2023. FINDINGS: LUNG BASES: No significant abnormality is appreciated. LIVER/GB: Nonspecific 1.7 cm hypodense lesion in the hepatic lobe axial image 19. Subcentimeter hypod ense lesion left hepatic lobe axial image 16. Small amount of fluid along the right inferior aspect o f the liver. PANCREAS: No significant abnormality is seen. SPLEEN: Small amount of ascites surrounding the spleen. ADRENALS: No significant abnormality is seen. KIDNEYS: Symmetric cortical medullary uptake and excretion without hydronephrosis seen bilaterally. BOWEL: No significant abnormality is seen. UTERUS/ADNEXA: Anteverted uterus. In the left pelvis there is a low-density 3.7 cm round lesion could reflect ovarian cyst or cystic lesion axial image 69. Consider pelvic ultrasound follow-up to [facility] r evaluate and characterize. Small amount free fluid in the pelvis. LYMPH NODES: No greater than 1cm abdominal or pelvic lymph nodes are appreciated. OSSEOUS STRUCTURES: Levoconvex scoliosis centered at L5 level. OTHER: Small amount of free fluid in the bilateral infracolic gutters. IMPRESSION: No bowel obstruction. Small amount of nonsimple fluid throughout the abdomen and pelvis c ould reflect blood product. Consider hemorrhagic cyst rupture as possible etiology. [facility], , 05/07/2024 6:00 PM
[2024-05-07] MEDS: IBUPROFEN 600 MG STARTER PACK 4 TAB BTL PO STA (18:56)
[2024-05-07] MEDS: ACETAMINOPHEN TAB 500 MG TAB PO STA (18:57)
[2024-05-07 19:03] VITALS: BP 128/82; PULSE 80; RESP 18
== END 2024-05-07 19:03 | disposition home or self-care (01) ==
LOC: EC 14:04
DX: N83.299 Other ovarian cyst, unspecified side (principal); F17.290 Nicotine dependence, other tobacco product, uncomplicated
CPT/HCPCS: 36415; 80053; 83605; 83690; 85025; 81001; 81025; 74177; 99284; 96374; 96361; J1885; Q9967

== ENCOUNTER → 2024-11-12 | Outpatient (CLI) | payer OTHER ==
--- NOTE | 2024-11-12 13:55 | CT ---
EXAMINATION TYPE: CT chest wo con CT DLP: 218.5 mGycm, Automated exposure control for dose reduction was used. DATE OF EXAM: 11/12/2024 1:46 PM COMPARISON: None CLINICAL INDICATION:Female, 24 years old with history of R06.01 ORTHOPENIA; PHH, Orthopenia, pt c/o c hest pain, "wet feeling" in lungs, Hx vaping. TECHNIQUE: Multiple axial images were obtained through the chest without IV contrast. Lack of IV or o ral contrast limits evaluation of solid and hollow organ viscera. . Coronal and sagittal reformats re viewed. FINDINGS: LUNGS/ PLEURA: No pleural effusion, pneumothorax, or focal consolidation. No evidence for interstiti al lung disease. A few pulmonary micronodules measuring less than 2 mm. Doubtful clinical significanc e in this patient's age group. No follow-up recommended. AIRWAY: Patent and unremarkable.. HEART: Size within normal limits. . No pericardial effusion. No significant coronary artery calcifica tions. MEDIASTINUM: No gross evidence of adenopathy. Residual thymus. VASCULATURE: No aortic aneurysm. MUSCULOSKELETAL: No acute osseous abnormalities SOFT TISSUES/LYMPH NODES: Unremarkable. LOWER NECK: No significant findings. UPPER ABDOMEN: No significant findings. IMPRESSION: No acute thoracic process. No evidence of interstitial lung disease. [facility], , 11/12/2024 1:53 PM
== END | disposition home or self-care (01) ==
LOC: RADCTMAIN 13:12
PROVIDERS: ATTEND Family Medicine
DX: R06.01 Orthopnea (principal); Z87.891 Personal history of nicotine dependence
CPT/HCPCS: 71250